=== PATIENT | male | born 1940 | race Caucasian/White ===

== ENCOUNTER → 2016-07-13 | Day surgery (SDC) | payer MEDICARE, OTHER ==
[~2016-07-13] MED LIST: ASPI81TA19 PO; BACT800T5 PO; BUPIVACAINE HCL PF 0.75% 30 ML VIAL ONE; CEFT500T3 PO; FURO1TAB62 PO; GABA300C5 PO; HYDR-3516 PO; HYDR-3580 PO; HYDR-3583 PO; IOHEXOL 180 MG/ML 20 ML VIAL (for RAD DIAG) OTHER ONE; LACTCHW3 CHEW; LEVO.075 PO; LIDOCAINE HCL 1% PF 30 ML VIAL INFIL ONE; METF500T PO; METO50TA PO; MUCI600T PO; NEUR300C PO; NIAC500T18 PO; OMEG100010 PO; OMEG1CAP53 PO; OXYGENTANK NAS.CANULA; PLAV75TA29 PO; POTA10CA PO; PRED10PA PO; PROPOFOL 200 MG/20 ML AMP IV ONE; RAMI5CAP PO; TRIAMCINOLONE ACETONIDE 40 MG/ML VIAL NB ONE; ZOCO40TA PO
--- NOTE | 2016-07-13 11:16 | RADHPO ---
EXAM DATE/TIME: 07/13/2016 10:30 [facility] COMPARISON: No previous studies available for comparison. INDICATIONS: L3/4 Disc Injection MEDICAL HISTORY: None. SURGICAL HISTORY: None. ENCOUNTER: Initial ACUITY: 1 day PAIN SCORE: Non-responsive. LOCATION: Lumbar spine FINDINGS: L3-4 disc space has been injected with contrast. CONCLUSION: 1. Status post injection of L3-4 disc space. Patrick Cabezas MD on July 13, 2016 at 11:07 Board Certified Radiologist. This report was verified electronically.
--- NOTE | 2016-07-18 09:25 | M6 ---
cc: CICI BETANCOURT M.D. DATE: 07/13/2016 DATE OF : 1940 PROCEDURE Fluoroscopically guided L3-4 disc injection. PROCEDURE NOTE History and physical was completed and signed. Consent was signed. Procedure site was marked. Medications were listed and reconciled. Pain score was recorded. Allergies were noted. Timeout was taken. Fluoroscopy time was recorded where applicable. Sedation was administered or directed by Dr. Betancourt. The patient was given oxygen. The patient was monitored by a registered nurse. Total procedure time was greater than 15 minutes. An IV was started, blood pressure cuff, pulse oximeter and EKG were applied. The patient was placed in the prone position on a Reinaldo table, sedated with small amounts of propofol titrated to effect. Vital signs were monitored and remained stable throughout the procedure. The lumbar area was prepped with alcohol and 10% Betadine solution, draped with sterile drapes. Fluoroscopy was used in an oblique angle to clearly visualize the L3-4 disc with the superior articular process of L4 at the midportion of the disk. Then the skin was infiltrated with 1% Xylocaine using a 27-gauge needle. Then a 16-gauge introducer needle was placed through the skin and then a 5-inch, 22-gauge spinal needle was advanced through the introducer needle to just inferior to the superior articular process of L4 into the midportion of the L3-4 disc. Omnipaque dye was injected and seen to spread throughout the disc with some leakage along the lateral aspect of the disc on the left side. Then the patient was given 1 mL of Marcaine 0.75% with 20 mg of Kenalog. Following the procedure the patient was taken to the recovery room with stable vital signs, neurologically intact. He will be evaluated immediately and with follow-up. W. MD OLIVIA Willis/BEE /9:33 AM /9:13 AM
== END | disposition home or self-care (01) ==
LOC: PHSDC 07:42
PROVIDERS: ATTEND Pain Medicine Interventional Pain Medicine
DX: M54.5 Low back pain (principal)
CPT/HCPCS: 62290; 72100; 99152; J3301; Q9965

== ENCOUNTER → 2016-08-31 | Outpatient (CLI) | payer MEDICARE, OTHER ==
[~2016-08-31] MED LIST changes: -BACT800T5 PO; -BUPIVACAINE HCL PF 0.75% 30 ML VIAL ONE; -IOHEXOL 180 MG/ML 20 ML VIAL (for RAD DIAG) OTHER ONE; -LIDOCAINE HCL 1% PF 30 ML VIAL INFIL ONE; -PROPOFOL 200 MG/20 ML AMP IV ONE; -TRIAMCINOLONE ACETONIDE 40 MG/ML VIAL NB ONE
[2016-08-31 09:27] LABS: MEAN CELL VOLUME 96.7 FL (80.0-100.0); MEAN CORPUSCULAR HEMOGLOBIN 32.4 PG (27.0-34.0); MEAN CORPUSCULAR HGB CONC 33.5 % (32.0-36.0); PLATELET COUNT 199 TH/MM3 (150-450); RED BLOOD COUNT 4.44 MIL/MM3 (4.50-5.90); RED CELL DISTRIBUTION WIDTH 12.6 % (11.6-17.2); REVIEW FLAG FINAL; WHITE BLOOD COUNT 8.1 TH/MM3 (4.0-11.0)
[2016-08-31 09:58] LABS: ALKALINE PHOSPHATASE 73 U/L (45-117); ALT (GPT) 26 U/L (12-78); ANION GAP 7 MEQ/L (5-15); AST (GOT) 19 U/L (15-37); BICARBONATE 32.4 MEQ/L (21.0-32.0); BLOOD UREA NITROGEN 15 MG/DL (7-18); CHLORIDE 102 MEQ/L (98-107); GLOMERULAR FILTRATION RATE 73 ML/MIN (>89); GLUCOSE,FASTING 136 MG/DL (74-99); LDL CHOLESTEROL 48 MG/DL (0-99); LDL CHOLESTEROL DIRECT 74 MG/DL (0-99); POTASSIUM 4.2 MEQ/L (3.5-5.1); SODIUM (NA) 141 MEQ/L (136-145); TOTAL BILIRUBIN ADULT 0.4 MG/DL (0.2-1.0)
[2016-08-31 10:19] LABS: MICRO ALBUMIN RANDOM URINE RAW 40.1 MG/L (0.0-30.0)
[2016-08-31 10:28] LABS: HEMOGLOBIN A1a 1.2 %; HEMOGLOBIN Ao 83.9 %; HEMOGLOBIN LA1C 2.1 %; HEMOGLOBIN P3 3.9 %
== END ==
LOC: PLAB 07:10
PROVIDERS: ATTEND Internal Medicine
DX: E11.65 Type 2 diabetes mellitus with hyperglycemia (principal); E78.5 Hyperlipidemia, unspecified; I10 Essential (primary) hypertension
CPT/HCPCS: 36415; 80053; 80061; 82043; 83036; 83721; 85027

== ENCOUNTER 2016-10-02 13:54 | Inpatient (IN) | payer MEDICARE, OTHER ==
[~2016-10-02] VITALS: Ht 181.6 cm; Wt 111.0 kg
[~2016-10-02 13:54] MED LIST changes: -CEFT500T3 PO; -FURO1TAB62 PO; -HYDR-3516 PO; -HYDR-3580 PO; -HYDR-3583 PO; -LACTCHW3 CHEW; -MUCI600T PO; -NEUR300C PO; -OXYGENTANK NAS.CANULA; -POTA10CA PO; -PRED10PA PO
[2016-10-10] MEDS ORDERED: HYDR-3580 PO (11:40)
--- NOTE | 2016-10-10 16:52 | MH ---
cc: ALEIXS MONTGOMERY DATE OF ADMISSION: 10/15/2016 ADMITTING DIAGNOSIS Lumbar degenerative disc disease. HISTORY OF PRESENT ILLNESS This is a 75-year-old male who presented to us for an evaluation of low back pain that he has had for over nine months extending into the left lateral thigh. He states he has had low back pain since 1977. He denies any paresthesias in the lower extremities. He states his legs are weak. His legs buckled two months ago and he fell. He ambulates without any assistive devices. He had physical therapy three months ago which did not help. He had five epidural steroid injections the last was two months ago. He relates that his first four injections which were at the L4-5 level did not help, and the last one was at the L3-L4 level on the left side which helped some for about three weeks. His low back pain improves with laying down. His back pain is more bothersome than his leg pain. In 2011 he had right leg pain in the right lateral thigh but this resolved on its own without PT or pain management. He denies any bowel or bladder incontinence. He states he is miserable and he is requesting surgical intervention. PAST MEDICAL HISTORY Significant for coronary artery disease and myocardial infarction in 2000. He has had angioplasty and stent placement in October of 2000 as well as November of 2000, and then angioplasty in July of 2002. Angioplasty and stent in January of 2004, angioplasty in May of 2008. CURRENT MEDICATIONS 1. Aspirin 81 mg daily. This was placed on hold one week prior to surgical intervention. 2. Plavix 75 mg daily. This was placed on hold one week prior to surgical intervention. 3. Gabapentin 300 mg three times a day. 4. Levothyroxine 75 mg daily. 5. Lovaza Halliday 3 two tablets b.i.d. 6. Metoprolol 50 mg daily. 7. Metformin 500 mg two tablets b.i.d. 8. Niacin 500 mg b.i.d. 9. Ramipril 5 mg b.i.d. 10. Simvastatin 10 mg q.h.s. 11. Hydrocodone 5/500 b.i.d. ALLERGIES HE HAS SENSITIVITIES TO TRAMADOL AND FLEXERIL. HE STATES HE MAY BE ALLERGIC TO MORPHINE. FAMILY HISTORY His mother is at 82 years old. His father is at 82 years old. His sister is at 75 years old, had COPD. He has a brother who is at 81 years old. SOCIAL HISTORY He does not smoke, he quit 1979. He does not drink alcohol. REVIEW OF SYSTEMS [id number]: Denies any fever or chills. EARS, NOSE AND THROAT: No pharyngitis, exudates or bloody drainage from his nose. CARDIOVASCULAR: He denies any chest pain or palpitations. RESPIRATORY: No cough or shortness of breath. GENITOURINARY: No dysuria or hematuria. MUSCULOSKELETAL: Positive for low back pain. SKIN: No rashes or pruritus. NEUROLOGIC: No difficulty with speech or memory. GASTROINTESTINAL: No nausea, vomiting or abdominal pain. PSYCHIATRIC: No anxiety or depression symptoms. ENDOCRINE: No polyuria or polydipsia. HEMATOLOGIC: Positive for easy bruising but no bleeding tendencies. PHYSICAL EXAMINATION HEAD: Normocephalic, atraumatic. NECK: Supple. No carotid bruits heard on auscultation. LUNGS: Clear to auscultation bilaterally. HEART: Regular rate and rhythm. Normal S1, S2. ABDOMEN: Soft, nontender. Positive bowel sounds. SKIN: Reveals no cyanosis or erythema although he does have mild ecchymosis on his forearms. MUSCULOSKELETAL: Reveals he has 5/5 strength in the lower extremities. He ambulates without any assistive devices. NEUROLOGIC: He is awake, alert and oriented. Cranial nerves II through XII are grossly intact. His speech is fluent. Comprehension is good. Sensation is intact in the extremities. Reflexes are very diminished in the lower extremities. DATA REVIEW Reviewed an MRI of the lumbar spine from June 12, 2016 which reveals severe degenerative disc disease with near complete disc height collapse at the L2/L3, L3/L4, L4/L5 and L5/S1 levels with associated disc protrusions and facet arthropathy. There are T2-weighted endplate changes at the L2/L3 level in particular. He has foraminal stenosis most pronounced at the L3/L4 level on the left side as well as the L5/S1 level. IMPRESSION A 75-year-old male with a chronic history of low back pain along with left L3 radiculopathy in the lateral thigh. He has undergone physical therapy without any relief and also multiple epidural steroid injections initially at the L4/L5 level which did not help and more recently at the left L3/L4 level which provided the patient with partial relief for about several weeks. His back pain bothers him more than the left lower extremity symptoms. He has multiple levels of degenerative disc disease extending from the L2-S1 levels along with facet arthropathy and foraminal stenosis, but the most symptomatic level appears to be the L2/L3 and L3/L4 level. He cannot live with his current level of discomfort and activity restriction and he is requesting that we proceed with surgical intervention. PLAN We have discussed the procedure of the left L2/L3 and L3/L4 transforaminal decompression with interbody fusion and pedicle screw fixation. We have discussed the risks involved with surgery include but not limited to bleeding, infection, muscle weakness, voice hoarseness, difficulty swallowing, heart attack, stroke, blood clots, non-fusion, scar tissue formation among others. He understands that he has multiple other levels of degenerative disc disease and facet arthropathy that may be contributing to his ongoing symptoms, but the goal is to address the most symptomatic level at this point. We have obtained cardiac clearance by Dr. Moore who placed the patient at an intermediate risk and was cleared by Dr. Grajeda from vascular surgery. The patient understands the procedure as well as the risks involved and is requesting that we proceed and he was therefore scheduled accordingly. Dictated by: Rell Lovett PA-C MD KATINA Peraza/ROSALVA /3:28 PM /4:15 PM
[2016-10-15] MEDS ORDERED: METOPROLOL TARTRATE 25 MG TAB PO PRN (06:45)
[2016-10-15] MEDS ORDERED: VANCOMYCIN HCL 1000 MG ON-CALL/NS 250 ML IV SCH ×2 (06:45)
[2016-10-15] MEDS ORDERED: INSULIN HUMAN REGULAR 1,000 UNITS/10 ML VIAL SQ PRN (06:45)
[2016-10-15] MEDS ORDERED: SODIUM CHLOR 0.9% 1000 ML INJ 1,000 ML IV SCH (06:45)
[2016-10-15] MEDS ORDERED: POVIDONE IODINE 5% (ANTISEPSIS KIT) 4 APPLICATIONS EACH NARE PRN (06:45)
[2016-10-15] MEDS ORDERED: CHLORHEXIDINE GLUCONATE 2 % 1 PACK (2 CLOTHS) TOPICAL PRN (06:45)
[2016-10-15] MEDS ORDERED: LACTATED RINGER'S 1000 ML IV PRN (06:45)
[2016-10-15] MEDS ORDERED: SODIUM CHLORID 0.9% 500 ML IV PRN (06:45)
[2016-10-15] MEDS ORDERED: VANCOMYCIN HCL 1000 MG VIAL ONE ×2 (07:17→12:19)
[2016-10-15] MEDS ORDERED: BUPIVACAINE/EPINEPHRINE 0.5% PF 30 ML VIAL ONE (07:17)
[2016-10-15] MEDS ORDERED: GELFOAM SIZE 100 ONE (07:18)
[2016-10-15 07:34] VITALS: BP 180/71; PULSE 60; RESP 18; TEMP 98; O2SAT 95
[2016-10-15] MEDS ORDERED: THROMBIN (TOPICAL) 5,000 UNIT VIAL ONE ×2 (07:51→12:06)
[2016-10-15] MEDS ORDERED: FAMOTIDINE 20 MG/2 ML VIAL ONE ×2 (08:19→08:50)
[2016-10-15] MEDS ORDERED: ACETAMINOPHEN 1000 MG/100 ML VIAL IV ONE (08:19)
[2016-10-15] MEDS ORDERED: ARTIFICIAL TEARS OPTH OINT 3.5 APPLIC/3.5 GM TUBO ONE (08:19)
[2016-10-15] MEDS ORDERED: MIDAZOLAM HCL 2 MG/2 ML VIAL ONE ×2 (08:19→08:49)
[2016-10-15] MEDS ORDERED: fentaNYL CITRATE 250 MCG/5 ML AMP ONE ×2 (08:19→13:27)
[2016-10-15] MEDS ORDERED: KETAMINE HCL 500 MG/5 ML VIAL ONE (08:36)
[2016-10-15] MEDS ORDERED: SUGAMMADEX SODIUM 200 MG/2 ML VIAL IV PUSH ONE ×2 (08:46)
[2016-10-15] MEDS: VANCOMYCIN 500 MG VIAL ONE ×2 (09:45→12:20)
[2016-10-15] MEDS ORDERED: ePHEDrine/NS 25 MG/5 ML SYR IV ONE (12:00)
[2016-10-15] MEDS ORDERED: PHENYLEPHRINE HCL 10 MG/ML VIAL IV ONE (12:00)
[2016-10-15] MEDS ORDERED: ONDANSETRON HCL 4 MG/2 ML VIAL IV ONE (12:00)
[2016-10-15] MEDS ORDERED: LACTATED RINGER'S 1000 ML INJ 1,000 ML IV ONE (12:00)
[2016-10-15] MEDS ORDERED: PROPOFOL 200 MG/20 ML AMP IV ONE (12:00)
[2016-10-15] MEDS ORDERED: VANCOMYCIN 500 MG VIAL ONE (12:20)
[2016-10-15] MEDS ORDERED: *MEPERIDINE 25 MG INJ VIAL PERIprocedural Use ONLY ONE (13:30)
[2016-10-15] MEDS ORDERED: MENTHOL LOZENGE BUCCAL PRN (13:45)
[2016-10-15] MEDS ORDERED: ZOLPIDEM TARTRATE 5 MG TAB PO PRN (13:45)
[2016-10-15] MEDS ORDERED: ACETAMINOPHEN/HYDROcodone 325 MG/10 MG TAB PO PRN (13:45)
[2016-10-15] MEDS ORDERED: cloNIDine HCL 0.1 MG TAB PO PRN (13:45)
[2016-10-15] MEDS ORDERED: RESP: ALBUTEROL 2.5 MG/3 ML NEB (PRN) NEB (13:45)
[2016-10-15] MEDS ORDERED: ONDANSETRON HCL 4 MG/2 ML VIAL IV PRN (13:45)
[2016-10-15] MEDS ORDERED: MAGNESIUM HYDROXIDE SUSP 30 ML CUP PO PRN (13:45)
[2016-10-15] MEDS ORDERED: ACETAMINOPHEN 325 MG TAB PO PRN (13:45)
[2016-10-15] MEDS ORDERED: SODIUM CHLORIDE 0.9% FLUSH 10 ML FLUSH IV FLUSH PRN (13:45)
[2016-10-15] MEDS ORDERED: ALUMINUM/MAGNESIUM/SIMETH 30 ML CUP PO PRN (13:45)
[2016-10-15] MEDS ORDERED: diphenhydrAMINE HCL 25 MG CAP PO PRN (13:45)
[2016-10-15] MEDS ORDERED: CALCIUM GLUCONATE INJ 1 GM in SODIUM CHLORIDE 0.9% INJ 100 ML IV PRN (13:45)
[2016-10-15] MEDS ORDERED: NALOXONE HCL 0.4 MG/ML AMP IV PRN (13:45)
[2016-10-15] MEDS ORDERED: POTASSIUM CHLOR 20 MEQ PREMIX 100 ML IV PRN (13:45)
[2016-10-15] MEDS ORDERED: PROCHLORPERAZINE INJ 10 MG/2 ML VIAL IV PUSH PRN (13:45)
[2016-10-15] MEDS ORDERED: MAGNESIUM SULFATE INJ 2 GM in SODIUM CHLORIDE 0.9% INJ 100 ML IV PRN (13:45)
--- NOTE | 2016-10-15 13:49 | PD.OP ---
cc: Jose Betancourt MD; Sirisha Silva MD Operative Report Date of Surgery: Oct 15, 2016 Preoperative Diagnosis: Intractable low back pain with the left L3 radiculopathy; severe L2-3 and L3-4 degenerative disc disease with disc height collapse, facet hypertrophy, and associated foraminal stenosis Postoperative Diagnosis: Same Procedure: Lumbar L2-3 and L3-4 transforaminal decompression with interbody fusion; L2-4 pedicle screw fixation; L2-3 and L3-4 interbody cage placement; microsurgical technique Anesthesia: Gen. endotracheal by Armani Nassar Surgeon: Heriberto Rothman M.D. Home Performance Consultant(s): Reena Li Operation and Findings: Following initiation of general endotracheal anesthesia, the patient had a Levi catheter placed along with sequential compression devices. A gram of vancomycin was administered intravenously and he was turned in a prone position on a John frame, on a Reinaldo table, and all pressure points adequately padded. The lumbosacral region was then prepped with Chloraprep and sterilely draped with Ioban along the usual sterile draping. A left paraspinal skin incision was then made extending from the L2-L4 level after infiltrating the skin with 0.5% Marcaine with epinephrine solution extending down through the fascia. The muscle fibers were split using avascular fatty plane and detached from the underlying facets, transverse process and lateral portion of lamina on the left side and a self-retaining retractor used for exposure. Intraoperative fluoroscopy was also used for level of confirmation along with microscope magnification for further dissection. There was significant facet and ligamentum flavum hypertrophy noted at the L2-3 and L3-4 levels. Left L2-3 and L3-4 facets were resected with a drill bit along with the lamina and there was severe foraminal and lateral recess stenosis from hypertrophied ligamentum flavum and facet which were decompressed. There was significant disc height collapse along with disc protrusion also leading to the foraminal stenosis. Epidural hemostasis was achieved with bipolar cautery and Gelfoam with thrombin. Subsequently entered into the disc space at the L2-3 and also the L3- 4 levels with a #15 blade and gilma were used for discectomy. I then placed PEEK cages packed with local autograft bone and more local autograft bone was packed adjacent to the cages in both interspaces for added interbody fusion. With placement of the cages, I was able to distract the interspace and opened up the foramen further bilaterally. Subsequently in order to facilitate the fusion and provide stabilization, pedicle screw fixation was undertaken using [place] spine screws with entry point at the left L2, L3 and L4 levels at the junction of the transverse process and facet. Subsequently using AP and lateral fluoroscopy tap and screw placement. The screws were then connected with a neftali and locked in place with caps. The construct appeared very secure at this point. The area was then copiously irrigated with Vancomycin solution and powder. The retractors were removed and the bipolar cautery used for hemostasis. The muscle fascia was then approximated using 2-0 Vicryl interrupted stitches and then 3-0 Vicryl subcuticular stitches also placed in interrupted fashion. The final skin closure was completed with Mastisol and Steri-Strips. A sterile dressing was then applied. The patient then turned in supine position, extubated and taken to recovery room. There were no intraoperative complications. All sponge and needle counts were correct at the end of procedure. Estimated blood loss about 100 ml. Heriberto Rothman MD Oct 15, 2016 13:49
[2016-10-15] MEDS ORDERED: *ONDANSETRON 4 MG VIAL PERIprocedural Use ONLY ONE (13:59)
[2016-10-15] MEDS: PCA - TOTAL MG DILAUDID DELIVERED PER SHIFT OTHER SCH ×2 (14:00→21:46)
[2016-10-15] MEDS ORDERED: GLUCAGON 1 MG/ML VIAL OTHER PRN (14:00)
[2016-10-15] MEDS ORDERED: DEXTROSE 50% IN WATER 50 ML VIAL(D50) IV PUSH PRN (14:00)
[2016-10-15 14:12] LABS: AUTOMATED NEUTROPHIL # 10.8 TH/MM3 (1.8-7.7); BASOPHIL # 0.1 TH/MM3 (0-0.2); BASOPHIL % 0.6 % (0.0-2.0); EOSINOPHIL # 0.1 TH/MM3 (0-0.4); EOSINOPHIL % 0.9 % (0.0-4.0); HEMATOCRIT 41.7 % (39.0-51.0); HEMO FLAGS DIFF FINAL; LYMPH % 17.5 % (9.0-44.0); LYMPHOCYTE # 2.5 TH/MM3 (1.0-4.8); MEAN CELL VOLUME 94.1 FL (80.0-100.0); MEAN CORPUSCULAR HEMOGLOBIN 31.8 PG (27.0-34.0); MEAN CORPUSCULAR HGB CONC 33.8 % (32.0-36.0); PLATELET COUNT 217 TH/MM3 (150-450); RED BLOOD COUNT 4.43 MIL/MM3 (4.50-5.90); RED CELL DISTRIBUTION WIDTH 12.9 % (11.6-17.2); WHITE BLOOD COUNT 14.4 TH/MM3 (4.0-11.0)
[2016-10-15 14:30] LABS: MAGNESIUM 1.8 MG/DL (1.5-2.5); POTASSIUM 4.3 MEQ/L (3.5-5.1)
[2016-10-15] MEDS: BACLOFEN 10 MG TAB PO SCH ×2 (14:30→21:40)
[2016-10-15] MEDS: NS + KCL 20 MEQ INJ 1,000 ML IV SCH ×2 (14:41→21:46)
[2016-10-15] MEDS: HYDROmorphone HCL PCA 6 MG/30 ML IV SCH (15:28)
[2016-10-15] MEDS: INSULIN NovoLIN REGULAR SUPPLEMENTAL SCALE SQ SCH ×2 (16:00→21:41)
[2016-10-15 17:00] VITALS: BP 146/80; PULSE 78; RESP 17; TEMP 96.1; O2SAT 96
[2016-10-15] MEDS: GABAPENTIN 300 MG CAP PO SCH (17:18)
--- NOTE | 2016-10-15 19:16 | RADRPT ---
EXAM DATE/TIME: 10/15/2016 09:27 [facility] COMPARISON: No previous studies available for comparison. INDICATIONS : Lumbar spine L2-3 L3-4 laminectomies with interbody cages and pedicle screw fixation. OR. MEDICAL HISTORY : Cardiovascular disease. SURGICAL HISTORY : Coronary artery stent. ENCOUNTER: Initial ACUITY: 1 day PAIN SCORE: Non-responsive. LOCATION: Lumbar L2-4 FINDINGS: Images and the operating room show fusion procedure with interbody and left posterior instrumentation taking place at L2/L3 and L3/L4. Alignment is near-anatomic. No evidence of an acute complication. CONCLUSION: Fusion at L2/L3 and L3/L4 without acute abnormality demonstrated. Jim Kowalski MD on October 15, 2016 at 19:13 Board Certified Radiologist. This report was verified electronically.
[2016-10-15 20:24] VITALS: O2SAT 96
[2016-10-15 20:35] VITALS: BP 136/70; PULSE 88; RESP 16; TEMP 96; O2SAT 95
[2016-10-15] MEDS ORDERED: OMEGA 3 FATTY ACIDS PO SCH (21:00)
[2016-10-15] MEDS: DOCUSATE SODIUM 100 MG CAP PO SCH (21:40)
[2016-10-15] MEDS: PRAVASTATIN SOD 80 MG TAB PO SCH (21:40)
[2016-10-15] MEDS: RAMIPRIL 5 MG CAP PO SCH (21:40)
[2016-10-15] MEDS: SODIUM CHLORIDE 0.9% FLUSH 10 ML FLUSH IV FLUSH SCH (21:45)
[2016-10-15 23:40] VITALS: BP 144/69; PULSE 96; RESP 18; TEMP 97.3; O2SAT 95
[2016-10-16] VITALS (7 sets, daily range): BP systolic 102–133; BP diastolic 56–64; PULSE 74–86; RESP 16–17; TEMP 97–98.2; O2SAT 95–98
[2016-10-16] MEDS: HYDROmorphone HCL PCA 6 MG/30 ML IV SCH (01:35)
[2016-10-16] MEDS: PCA - TOTAL MG DILAUDID DELIVERED PER SHIFT OTHER SCH ×2 (06:00→22:00)
[2016-10-16] MEDS: BACLOFEN 10 MG TAB PO SCH ×3 (06:33→22:03)
[2016-10-16] MEDS: LEVOTHYROXINE SODIUM 75 MCG TAB PO SCH (06:33)
[2016-10-16] MEDS: INSULIN NovoLIN REGULAR SUPPLEMENTAL SCALE SQ SCH ×4 (06:33→21:00)
[2016-10-16] MEDS: RAMIPRIL 5 MG CAP PO SCH ×2 (08:10→22:03)
[2016-10-16] MEDS: POLYETHYLENE GLYCOL 17 GM PKG PO SCH (08:10)
[2016-10-16] MEDS: DOCUSATE SODIUM 100 MG CAP PO SCH ×2 (08:11→22:03)
[2016-10-16] MEDS: PANTOPRAZOLE SOD 40 MG DELAYED RELEASE TAB PO SCH (08:11)
[2016-10-16] MEDS: ASPIRIN EC 81 MG TABEC PO SCH (08:11)
[2016-10-16] MEDS: GABAPENTIN 300 MG CAP PO SCH ×3 (08:11→17:29)
[2016-10-16] MEDS: METOPROLOL TARTRATE 50 MG TAB PO SCH (08:11)
[2016-10-16] MEDS ORDERED: ASPIRIN 325 MG TAB PO SCH (09:00)
[2016-10-16] MEDS: NIACIN 500 MG EXTENDED RELEASE TAB PO SCH (09:00)
[2016-10-16] MEDS ORDERED: ASPIRIN 81 MG CHEW TAB PO SCH (09:00)
[2016-10-16] MEDS: SODIUM CHLORIDE 0.9% FLUSH 10 ML FLUSH IV FLUSH SCH ×2 (09:00→22:05)
--- NOTE | 2016-10-16 09:27 | HHI.NSPN ---
(Rell Lovett) History Chief Complaint: Incisional back pain. (Rell Lovett) Interval History 10/16/16: Pt awake and alert. Complains of incisional pain controlled with HOME DAY CARE PROVIDER. He has some pain radiating into the left lateral thigh not past the knee. He is very pleased so far with the results. Pt has Levi in place states he cannot urinate when laying down. He will get up today with PT and likely remove. (Rell Lvoett) Review of Systems General: Negative for: fever, chills, insomnia Respiratory: Negative for: shortness of breath, cough, sputum Cardiovascular: Negative for: chest pain Gastrointestinal: Negative for: nausea, vomitting, diarrhea, constipation ( Rell Lovett) Exam Results Vital Signs Date Time Temp Pulse Resp B/P Pulse Ox O2 Delivery O2 Flow Rate FiO2 10/16/16 08:09 97.0 80 16 133/60 97 10/15/16 20:24 Nasal Cannula 3.00 Intake and Output 10/15/16 10/15/16 10/16/16 08:00 16:00 00:00 Intake Total 1000 ml 1120 ml Output Total 350 ml 650 ml Balance 650 ml 470 ml (Rell Lovett) Physical Examination Resp: CTA bilaterally Heart: NSR no murmurs Abd: Soft positive bs Skin: Pt log rolled. Incision clean and dry. No signs of infection. New bandage placed. Muscle: Moves LEs with good strength. Pt has not gotten oob yet, brace was not brought to hospital yesterday. Neuro: Pt awake and alert. Follows commands well. Speech clear and appropriate. (Rell Lovett) Lab, Micro, Other Results Last Impressions Lumbar Spine X-Ray 10/15/16 0000 Signed Impressions: Service Date/Time: Saturday, October 15, 2016 09:27 - CONCLUSION: Fusion at L2/ L3 and L3/L4 without acute abnormality demonstrated. Jim Kowalski MD Laboratory Tests Test 10/15/16 13:52 White Blood Count 14.4 TH/MM3 Red Blood Count 4.43 MIL/MM3 Hemoglobin 14.1 GM/DL Hematocrit 41.7 % Mean Corpuscular Volume 94.1 FL Mean Corpuscular Hemoglobin 31.8 PG Mean Corpuscular Hemoglobin 33.8 % Concent Red Cell Distribution Width 12.9 % Platelet Count 217 TH/MM3 Mean Platelet Volume 9.2 FL Neutrophils (%) (Auto) 75.0 % Lymphocytes (%) (Auto) 17.5 % Monocytes (%) (Auto) 6.0 % Eosinophils (%) (Auto) 0.9 % Basophils (%) (Auto) 0.6 % Neutrophils # (Auto) 10.8 TH/MM3 Lymphocytes # (Auto) 2.5 TH/MM3 Monocytes # (Auto) 0.9 TH/MM3 Eosinophils # (Auto) 0.1 TH/MM3 Basophils # (Auto) 0.1 TH/MM3 CBC Comment DIFF FINAL Differential Comment Sodium Level 139 MEQ/L Potassium Level 4.3 MEQ/L Chloride Level 104 MEQ/L Carbon Dioxide Level 26.0 MEQ/L Anion Gap 9 MEQ/L Blood Urea Nitrogen 19 MG/DL Creatinine 1.03 MG/DL Estimat Glomerular Filtration 70 ML/MIN Rate Random Glucose 175 MG/DL Calcium Level 8.5 MG/DL Magnesium Level 1.8 MG/DL 10/15/16 10/15/16 10/16/16 15:00 23:00 07:00 Intake Total 1000 ml 1120 ml Output Total 350 ml 650 ml Balance 650 ml 470 ml Intake Oral 480 ml IV Total 640 ml Other 1000 ml Output Urine Total 250 ml 650 ml Estimated Blood Loss 100 ml # Bowel Movements 0 (Rell Lovett) Medical Decision Making Impression and Plan A: 76 y/o M s/p L2/L3 and L3/L4 TLIF with cage and pedicle screw fixation. P: Continue to monitor D/C Levi today PT (Rell Lovett) Attending Statement The exam, history, and the medical decision-making described in the above note were completed with the assistance of the mid-level provider. I reviewed and agree with the findings presented. I attest that I had a [id number] encounter with the patient on the same day, and personally performed and documented my assessment and findings in the medical record. (Heriberto Rothman MD) Rell Lovett PA Oct 16, 2016 09:27 Heriberto Rothman MD Oct 16, 2016 16:41
[2016-10-16] MEDS: PRAVASTATIN SOD 80 MG TAB PO SCH (22:03)
[2016-10-16] MEDS: NS + KCL 20 MEQ INJ 1,000 ML IV SCH (22:50)
[2016-10-17] VITALS (9 sets, daily range): BP systolic 117–167; BP diastolic 58–86; PULSE 67–104; RESP 16–18; TEMP 97.3–99.1; O2SAT 93–95
[2016-10-17] MEDS: ACETAMINOPHEN/HYDROcodone 325 MG/10 MG TAB PO PRN ×2 (03:37→21:30)
[2016-10-17] MEDS: LEVOTHYROXINE SODIUM 75 MCG TAB PO SCH (05:07)
[2016-10-17] MEDS: BACLOFEN 10 MG TAB PO SCH (05:07)
[2016-10-17] MEDS: PCA - TOTAL MG DILAUDID DELIVERED PER SHIFT OTHER SCH (05:08)
[2016-10-17] MEDS: INSULIN NovoLIN REGULAR SUPPLEMENTAL SCALE SQ SCH ×4 (06:38→21:00)
[2016-10-17] MEDS ORDERED: GABA300C5 PO (08:50)
[2016-10-17] MEDS: GABAPENTIN 300 MG CAP PO SCH ×2 (09:00→21:32)
[2016-10-17] MEDS ORDERED: HYDROmorphone HCL PF 1 MG/ML VIAL IV PUSH PRN (09:00)
[2016-10-17] MEDS: SODIUM CHLORIDE 0.9% FLUSH 10 ML FLUSH IV FLUSH SCH ×2 (09:00→21:33)
--- NOTE | 2016-10-17 09:11 | HHI.NSPN ---
History Chief Complaint: Incisional back pain. Interval History 10/16/16: Pt awake and alert. Complains of incisional pain controlled with INBOUND SALES REPRESENTATIVE. He has some pain radiating into the left lateral thigh not past the knee. He is very pleased so far with the results. Pt has Levi in place states he cannot urinate when laying down. He will get up today with PT and likely remove. 10/17/16: Pt is confused this morning. Complains of low back pain. He has hallucinations. No slurred speech. good strength. He follows commands well. Review of Systems General: Negative for: fever, chills, insomnia Respiratory: Negative for: shortness of breath, cough, sputum Cardiovascular: Negative for: chest pain Gastrointestinal: Negative for: nausea, vomitting, diarrhea, constipation Exam Results Vital Signs Date Time Temp Pulse Resp B/P Pulse Ox O2 Delivery O2 Flow Rate FiO2 10/17/16 04:30 98.9 104 18 152/70 93 10/16/16 18:31 Nasal Cannula 2.00 Intake and Output 10/16/16 10/16/16 10/17/16 08:00 16:00 00:00 Intake Total 980 ml 1531 ml Balance 980 ml 1531 ml Physical Examination Resp: CTA bilaterally Heart: NSR no murmurs Abd: Soft positive bs Skin: No cyanosis or erythema. Muscle: Moves LEs with good strength 5/5. Neuro: Pt awake and alert. Follows commands well. Speech clear but inappropriate at times. Lab, Micro, Other Results Last Impressions Lumbar Spine X-Ray 10/15/16 0000 Signed Impressions: Service Date/Time: Saturday, October 15, 2016 09:27 - CONCLUSION: Fusion at L2/ L3 and L3/L4 without acute abnormality demonstrated. Jim Kowalski MD 10/16/16 10/16/16 10/17/16 15:00 23:00 07:00 Intake Total 980 ml 1531 ml 250 ml Output Total 75 ml Balance 980 ml 1531 ml 175 ml Intake Oral 980 ml 480 ml IV Total 1051 ml 250 ml Output Urine Total 75 ml # Voids 3 0 # Bowel Movements 0 0 Medical Decision Making Impression and Plan A: 76 y/o M s/p L2/L3 and L3/L4 TLIF with cage and pedicle screw fixation. P: Continue to monitor PT INBOUND SALES REPRESENTATIVE discontinued this morning. Will obtain follow up labs but confusion likely related to medication. Rell Lovett Oct 17, 2016 09:11
[2016-10-17] MEDS: POLYETHYLENE GLYCOL 17 GM PKG PO SCH (09:33)
[2016-10-17] MEDS: ASPIRIN EC 81 MG TABEC PO SCH (09:33)
[2016-10-17] MEDS: RAMIPRIL 5 MG CAP PO SCH ×2 (09:34→21:32)
[2016-10-17] MEDS: DOCUSATE SODIUM 100 MG CAP PO SCH ×2 (09:34→21:32)
[2016-10-17] MEDS: NIACIN 500 MG EXTENDED RELEASE TAB PO SCH (09:34)
[2016-10-17] MEDS: PANTOPRAZOLE SOD 40 MG DELAYED RELEASE TAB PO SCH (09:34)
[2016-10-17] MEDS: METOPROLOL TARTRATE 50 MG TAB PO SCH (09:34)
[2016-10-17 10:35] LABS: BLOOD, URINE NEG (NEG); GLUCOSE,URINE NEG (NEG); KETONE, URINE NEG (NEG); NITRITE,URINE NEG (NEG); SQUAMOUS EPITHELIAL CELL URINE <1 /hpf (0-5); URINE COLOR LIGHT-YELLOW (YELLW/STRAW)
[2016-10-17 10:40] LABS: COMMENT (UR) CULT NOT INDICATED; CULTURE IF INDICATED CULT NOT INDICATED
[2016-10-17 11:28] LABS: AUTOMATED NEUTROPHIL # 8.4 TH/MM3 (1.8-7.7); BASOPHIL # 0.1 TH/MM3 (0-0.2); BASOPHIL % 0.5 % (0.0-2.0); EOSINOPHIL # 0.1 TH/MM3 (0-0.4); EOSINOPHIL % 0.5 % (0.0-4.0); HEMATOCRIT 35.9 % (39.0-51.0); HEMO FLAGS DIFF FINAL; LYMPH % 16.1 % (9.0-44.0); LYMPHOCYTE # 1.9 TH/MM3 (1.0-4.8); MEAN CELL VOLUME 94.7 FL (80.0-100.0); MEAN CORPUSCULAR HEMOGLOBIN 31.8 PG (27.0-34.0); MEAN CORPUSCULAR HGB CONC 33.6 % (32.0-36.0); MONO % 11.9 % (0.0-8.0); PLATELET COUNT 174 TH/MM3 (150-450); RED BLOOD COUNT 3.79 MIL/MM3 (4.50-5.90); WHITE BLOOD COUNT 11.9 TH/MM3 (4.0-11.0)
[2016-10-17 11:56] LABS: ALKALINE PHOSPHATASE 70 U/L (45-117); ALT (GPT) 20 U/L (12-78); ANION GAP 6 MEQ/L (5-15); AST (GOT) 27 U/L (15-37); BLOOD UREA NITROGEN 15 MG/DL (7-18); CHLORIDE 101 MEQ/L (98-107); GLOMERULAR FILTRATION RATE 76 ML/MIN (>89); POTASSIUM 4.3 MEQ/L (3.5-5.1); SODIUM (NA) 137 MEQ/L (136-145); TOTAL BILIRUBIN ADULT 0.6 MG/DL (0.2-1.0)
[2016-10-17] MEDS: PRAVASTATIN SOD 80 MG TAB PO SCH (21:32)
[2016-10-18 04:35] VITALS: BP 144/70; PULSE 72; RESP 18; TEMP 98.1; O2SAT 92
[2016-10-18] MEDS: LEVOTHYROXINE SODIUM 75 MCG TAB PO SCH (06:00)
[2016-10-18] MEDS: INSULIN NovoLIN REGULAR SUPPLEMENTAL SCALE SQ SCH ×4 (07:00→21:32)
[2016-10-18 08:10] VITALS: BP 150/71; PULSE 83; RESP 18; TEMP 98.4; O2SAT 96
[2016-10-18] MEDS: SODIUM CHLORIDE 0.9% FLUSH 10 ML FLUSH IV FLUSH SCH ×2 (09:00→21:00)
--- NOTE | 2016-10-18 09:18 | HHI.NSPN ---
(Rell Lovett) History Chief Complaint: Incisional back pain. (Rell Lovett) Interval History 10/16/16: Pt awake and alert. Complains of incisional pain controlled with PIPE WASHER. He has some pain radiating into the left lateral thigh not past the knee. He is very pleased so far with the results. Pt has Levi in place states he cannot urinate when laying down. He will get up today with PT and likely remove. 10/17/16: Pt is confused this morning. Complains of low back pain. He has hallucinations. No slurred speech. good strength. He follows commands well. 10/18/16: Pt much less confused today and was likely related to medications. We will see how he does getting up with PT today and if stable and confusion doesn't return possibly discharge with his daughters. He denies any chest pain or sob. He complains of incisional pain and pain extending into the left lateral thigh. (Rell Lovett) Review of Systems General: Negative for: fever, chills, insomnia Respiratory: Negative for: shortness of breath, cough, sputum Cardiovascular: Negative for: chest pain Gastrointestinal: Negative for: nausea, vomitting, diarrhea, constipation ( Rell Lovett) Exam Results Vital Signs Date Time Temp Pulse Resp B/P Pulse Ox O2 Delivery O2 Flow Rate FiO2 10/18/16 08:10 98.4 83 18 150/71 96 10/17/16 18:26 Nasal Cannula 2.00 Intake and Output 10/17/16 10/17/16 10/18/16 08:00 16:00 00:00 Intake Total 730 ml 600 ml 480 ml Output Total 375 ml 1000 ml 1200 ml Balance 355 ml -400 ml -720 ml (Rell Lovett) Physical Examination Resp: CTA bilaterally Heart: NSR no murmurs Abd: Soft positive bs Skin: No cyanosis or erythema. Pt log rolled and new bandage placed. No signs of infection. Muscle: Moves LEs with good strength 5/5. Neuro: Pt awake and alert. Follows commands well. Speech clear but inappropriate at times. (Rell Lovett) Lab, Micro, Other Results Laboratory Tests Test 10/17/16 10/17/16 10:25 11:05 Urine Color LIGHT-YELLOW Urine Turbidity CLEAR Urine pH 5.0 Urine Specific [place] 1.005 Urine Protein NEG mg/dL Urine Glucose (UA) NEG mg/dL Urine Ketones NEG mg/dL Urine Occult Blood NEG Urine Nitrite NEG Urine Bilirubin NEG Urine Urobilinogen LESS THAN 2.0 MG/DL Urine Leukocyte Esterase NEG Urine RBC 1 /hpf Urine WBC 1 /hpf Urine Squamous Epithelial <1 /hpf Cells Microscopic Urinalysis Comment CULT NOT INDICATED White Blood Count 11.9 TH/MM3 Red Blood Count 3.79 MIL/MM3 Hemoglobin 12.1 GM/DL Hematocrit 35.9 % Mean Corpuscular Volume 94.7 FL Mean Corpuscular Hemoglobin 31.8 PG Mean Corpuscular Hemoglobin 33.6 % Concent Red Cell Distribution Width 13.0 % Platelet Count 174 TH/MM3 Mean Platelet Volume 9.4 FL Neutrophils (%) (Auto) 71.0 % Lymphocytes (%) (Auto) 16.1 % Monocytes (%) (Auto) 11.9 % Eosinophils (%) (Auto) 0.5 % Basophils (%) (Auto) 0.5 % Neutrophils # (Auto) 8.4 TH/MM3 Lymphocytes # (Auto) 1.9 TH/MM3 Monocytes # (Auto) 1.4 TH/MM3 Eosinophils # (Auto) 0.1 TH/MM3 Basophils # (Auto) 0.1 TH/MM3 CBC Comment DIFF FINAL Differential Comment Sodium Level 137 MEQ/L Potassium Level 4.3 MEQ/L Chloride Level 101 MEQ/L Carbon Dioxide Level 30.0 MEQ/L Anion Gap 6 MEQ/L Blood Urea Nitrogen 15 MG/DL Creatinine 0.96 MG/DL Estimat Glomerular Filtration 76 ML/MIN Rate Random Glucose 176 MG/DL Calcium Level 8.6 MG/DL Total Bilirubin 0.6 MG/DL Aspartate Amino Transf 27 U/L (AST/SGOT) Alanine Aminotransferase 20 U/L (ALT/SGPT) Alkaline Phosphatase 70 U/L Total Protein 6.3 GM/DL Albumin 2.8 GM/DL 10/17/16 10/17/16 10/18/16 15:00 23:00 07:00 Intake Total 480 ml 1080 ml 240 ml Output Total 300 ml 2200 ml Balance 180 ml -1120 ml 240 ml Intake Oral 480 ml 1080 ml 240 ml Output Urine Total 300 ml 2200 ml # Voids 2 3 # Bowel Movements 0 0 0 (Rell Lovett) Medical Decision Making Impression and Plan A: 76 y/o M s/p L2/L3 and L3/L4 TLIF with cage and pedicle screw fixation. P: Continue to monitor PT D/C planning possibly today depending on therapy and if confusion doesn't return. (Rell Lovett) Attending Statement The exam, history, and the medical decision-making described in the above note were completed with the assistance of the mid-level provider. I reviewed and agree with the findings presented. I attest that I had a [id number] encounter with the patient on the same day, and personally performed and documented my assessment and findings in the medical record. (Heriberto Rothman MD) Rell Lovett Oct 18, 2016 09:18 Heriberto Rothman MD Oct 18, 2016 16:04
[2016-10-18] MEDS: ASPIRIN EC 81 MG TABEC PO SCH (09:51)
[2016-10-18] MEDS: RAMIPRIL 5 MG CAP PO SCH ×2 (09:51→21:25)
[2016-10-18] MEDS: GABAPENTIN 300 MG CAP PO SCH ×2 (09:52→21:25)
[2016-10-18] MEDS: ACETAMINOPHEN/HYDROcodone 325 MG/10 MG TAB PO PRN ×3 (09:53→21:29)
[2016-10-18] MEDS: PANTOPRAZOLE SOD 40 MG DELAYED RELEASE TAB PO SCH (09:53)
[2016-10-18] MEDS: NIACIN 500 MG EXTENDED RELEASE TAB PO SCH (09:53)
[2016-10-18] MEDS: METOPROLOL TARTRATE 50 MG TAB PO SCH (09:53)
[2016-10-18] MEDS: DOCUSATE SODIUM 100 MG CAP PO SCH ×2 (09:54→21:25)
[2016-10-18] MEDS: POLYETHYLENE GLYCOL 17 GM PKG PO SCH (09:54)
[2016-10-18 12:00] VITALS: BP 136/77; PULSE 80; RESP 17; TEMP 97.9; O2SAT 97
[2016-10-18 16:20] VITALS: BP 140/66; PULSE 86; RESP 18; TEMP 98.3; O2SAT 95
[2016-10-18 21:00] VITALS: BP 137/76; PULSE 73; RESP 17; TEMP 97.6; O2SAT 96
[2016-10-18] MEDS: PRAVASTATIN SOD 80 MG TAB PO SCH (21:25)
[2016-10-19 00:30] VITALS: BP 150/71; PULSE 79; RESP 18; TEMP 97.5; O2SAT 95
[2016-10-19] MEDS: ACETAMINOPHEN/HYDROcodone 325 MG/10 MG TAB PO PRN ×2 (01:45→05:48)
[2016-10-19 04:40] VITALS: BP 122/64; PULSE 89; RESP 17; TEMP 97.9; O2SAT 94
[2016-10-19] MEDS: LEVOTHYROXINE SODIUM 75 MCG TAB PO SCH (05:40)
[2016-10-19] MEDS: INSULIN NovoLIN REGULAR SUPPLEMENTAL SCALE SQ SCH ×2 (05:47→12:17)
[2016-10-19 08:02] VITALS: BP 103/64; PULSE 92; RESP 18; TEMP 97.6; O2SAT 95
[2016-10-19] MEDS: NIACIN 500 MG EXTENDED RELEASE TAB PO SCH (08:25)
[2016-10-19] MEDS: DOCUSATE SODIUM 100 MG CAP PO SCH (08:26)
[2016-10-19] MEDS: GABAPENTIN 300 MG CAP PO SCH (08:26)
[2016-10-19] MEDS: POLYETHYLENE GLYCOL 17 GM PKG PO SCH (08:26)
[2016-10-19] MEDS: PANTOPRAZOLE SOD 40 MG DELAYED RELEASE TAB PO SCH (08:26)
[2016-10-19] MEDS: ASPIRIN EC 81 MG TABEC PO SCH (08:26)
[2016-10-19] MEDS: METOPROLOL TARTRATE 50 MG TAB PO SCH (08:26)
[2016-10-19 09:13] VITALS: O2SAT 95
--- NOTE | 2016-10-19 09:58 | HHI.NSPN ---
History Chief Complaint: Incisional back pain. Interval History 10/16/16: Pt awake and alert. Complains of incisional pain controlled with [employer]. He has some pain radiating into the left lateral thigh not past the knee. He is very pleased so far with the results. Pt has Levi in place states he cannot urinate when laying down. He will get up today with PT and likely remove. 10/17/16: Pt is confused this morning. Complains of low back pain. He has hallucinations. No slurred speech. good strength. He follows commands well. 10/18/16: Pt much less confused today and was likely related to medications. We will see how he does getting up with PT today and if stable and confusion doesn't return possibly discharge with his daughters. He denies any chest pain or sob. He complains of incisional pain and pain extending into the left lateral thigh. 10/19/16: Pt awake and alert. No confusion. Complains of left lateral leg pain to the knee. Pt states he wants to go home today and not rehab. He feels he will be more mobile and walk farther today. Review of Systems General: Negative for: fever, chills, insomnia Respiratory: Negative for: shortness of breath, cough, sputum Cardiovascular: Negative for: chest pain Gastrointestinal: Negative for: nausea, vomitting, diarrhea, constipation Exam Results Vital Signs Date Time Temp Pulse Resp B/P Pulse Ox O2 Delivery O2 Flow Rate FiO2 10/19/16 09:13 95 Nasal Cannula 2.00 10/19/16 08:02 97.6 92 18 103/64 Intake and Output 10/18/16 10/18/16 10/19/16 08:00 16:00 00:00 Intake Total 240 ml 1020 ml 240 ml Balance 240 ml 1020 ml 240 ml Physical Examination Resp: CTA bilaterally Heart: NSR no murmurs Abd: Soft positive bs Skin: No cyanosis or erythema. Muscle: Moves LEs with good strength 5/5. Neuro: Pt awake and alert. Follows commands well. Speech clear and appropriate. Lab, Micro, Other Results 10/18/16 10/18/1617 15:00 23:00 07:00 Intake Total 1020 ml 240 ml 240 ml Balance 1020 ml 240 ml 240 ml Intake Oral 1020 ml 240 ml 240 ml # Voids 6 2 2 # Bowel Movements 0 0 Medical Decision Making Impression and Plan A: 76 y/o M s/p L2/L3 and L3/L4 TLIF with cage and pedicle screw fixation. P: Continue to monitor PT Fleets enema Increase Neurontin to 600mg tid. Possible discharge today depending on how he does with PT. Rell Lovett Oct 19, 2016 09:58
[2016-10-19] MEDS ORDERED: SOD PHOSPHATE/SOD BIPHOSPHATE (ADULT) ENEMA 133ML RECTAL ONE (10:00)
--- NOTE | 2016-10-19 10:04 | HHI.FF ---
Face to Face Verification Diagnosis: (1) TIA (transient ischemic attack) (2) Hyperlipidemia (3) Hypertension (4) Diabetes mellitus (5) CAD (coronary artery disease) (6) Carotid stenosis (7) Low back pain (8) Facet arthropathy, lumbar (9) Lumbar degenerative disc disease (10) Lumbar foraminal stenosis Physical Therapy Order: Evaluate and Treat, Improve ambulation, Strength and gait training Home Health Nursing Order: Wound care and dressing changes Nursing assessment with vital signs I have seen patient Vlad Wan on 10/19/16. My clinical findings support the need for the requested home health care services because: Deconditioned w/ increased weakness High risk of falls I certify that my clinical findings support that this patient is homebound because: Post-op weakness Unsteady gait/balance Unable to use public transportation Rell Lovett Oct 19, 2016 10:04
[2016-10-19] MEDS ORDERED: HYDR-3583 PO (10:40)
[2016-10-19] MEDS ORDERED: NEUR300C PO (10:40)
[2016-10-19 12:14] VITALS: BP 120/70; PULSE 89; RESP 16; TEMP 97.7; O2SAT 96
[2016-10-19] MEDS ORDERED: GABAPENTIN 300 MG CAP PO SCH (13:00)
[2016-10-29] MEDS ORDERED: HYDR-3583 PO (15:53)
[2016-11-19] MEDS ORDERED: HYDR-3583 PO (14:50)
--- NOTE | 2016-11-23 16:24 | HHI.DS ---
Discharge Summary Admission Date Oct 15, 2016 at 05:58 Discharge Date: Oct 19, 2016 Admitting Diagnosis (1) Facet arthropathy, lumbar Diagnosis: Principal ICD Code: M12.88 (2) Lumbar foraminal stenosis Diagnosis: Principal ICD Code: M99.83 (3) Lumbar degenerative disc disease Diagnosis: Principal ICD Code: M51.36 (4) Low back pain Diagnosis: Principal ICD Code: M54.5 Procedures Lumbar L2/L3 and L3/L4 transforaminal decompression with interbody fusion with cage and pedicle screw fixation by Heriberto Rothman MD on 10/15/16. Brief History This is a 75-year-old male who presented to us for evaluation of low back pain that is had for over 9 months extending into the left lateral thigh. He states he has had low back pain since 1977. He denies any paresthesias in the lower extremities. He states his legs are weak. His legs buckled 2 months ago when he fell. He ambulates without any assistive device. He had physical therapy 3 months ago which did not help. He had 5 epidural steroid injections with pain management. Relates the first 4 injections which were at the L4/L5 level did not help and the last one at the L3/L4 level on the left side helped for about 3 weeks. His back pain improves with laying down. His back pain is more bothersome than his leg pains. He denies any bowel or bladder incontinence. He is miserable with this level of discomfort is requesting surgical intervention. Imaging MRI of the lumbar spine from 06/12/16 reveals severe degenerative disc disease with near complete disc height collapse at the L2/L3, L3/L4, L4/L5, and L5/S1 levels with associated disc protrusions and facet arthropathy. There are T2- weighted endplate changes at the L2/L3 level in particular. He has foraminal stenosis most pronounced at the L3/L4 level on the left side as well as the L5/ S1 level. Hospital Course She underwent the above-noted procedure performed by Dr. Rothman. There is no intraoperative complications. Postoperatively patient was admitted to the medical/surgical floor. PT was consultative. Patient's Levi was discontinued. Patient's EXHIBIT DESIGNER was discontinued and she had confusion related to this which subsequently resolved after the EXHIBIT DESIGNER was removed. Patient was discharged home in stable condition with home health care. Pt Condition on Discharge: Stable Discharge Disposition: Disch w/ Home Health Serv Discharge Instructions DIET: Follow Instructions for: Diabetic Diet ACTIVITIES You can perform: Shower Only-No Bath Activities to Avoid: Lifting/Bending, Prolonged Standing, Strenuous Activity, Bathing, Driving ADDITIONAL Activity Instructio: Lumbar brace on when oob sitting, standing, or walking. Follow up Referrals: Appointment for Follow Up New Medications: Gabapentin (Neurontin) 300 Mg Cap 600 MG PO TID #120 CAP Continued Medications: Aspirin DR (Aspir-Low) 81 Mg Tabdr 81 MG PO Blood Clot Prevention Clopidogrel (Plavix) 75 Mg Tab 75 MG PO DAILY Blood Clot Prevention Ref 0 TAB Levothyroxine (Synthroid) 75 Mcg Tab 75 MCG PO DAILY Thyroid Ref 0 TAB Metformin (Metformin) 500 Mg Tab 500 MG PO BIDPC With meals Blood Sugar Management Ref 0 TAB Metoprolol Tartrate (Metoprolol Tartrate) 50 Mg Tab 50 MG PO DAILY Blood Pressure Management Ref 0 TAB Niacinamide (Niacin) 500 Mg Tab 1500 MG PO DAILY Cholesterol Management [place]-3 Fatty Acids ([place] 3 1000 mg) 1 Cap Cap 2 GM PO BID Cholesterol Management Tpdvz-4-Orlt Ethyl Esters (Lovaza) 1 Gm Cap 2 GM PO BID Manage Triglycerides #120 Ref 0 CAP Ramipril (Ramipril) 5 Mg Cap 5 MG PO BID Blood Pressure Management Ref 0 CAP Simvastatin (Zocor) 40 Mg Tab 40 MG PO HS Cholesterol Management Ref 0 TAB Discontinued Medications: Gabapentin (Gabapentin) 300 Mg Cap 900 MG PO BID Pain Management #90 Ref 0 CAP Hydrocodone-Acetaminophen (Hydrocodone-Acetaminophen) 7.5-325 mg Tab 1 TAB PO TID PRN PAIN #30 Ref 0 TAB Rell Lovett November 23, 2016 16:24
[2016-11-29] MEDS ORDERED: HYDR-3583 PO (14:27)
[2016-12-24] MEDS ORDERED: HYDR-3583 PO (14:43)
== END 2016-10-19 16:20 | disposition home health service (06) | DRG 460 ==
LOC: HSDI 10-15 05:58 → N06A 10-15 15:32
PROVIDERS: ADMIT Neurological Surgery; ATTEND Neurological Surgery
PROC: 0ST20ZZ Resection of Lumbar Vertebral Disc, Open Approach (ICD-10-PCS; 2016-10-15)
PROC: 0SG10AJ Fusion of 2 or more Lumbar Vertebral Joints with Interbody Fusion Device, Posterior Approach, Anterior Column, Open Approach (ICD-10-PCS; principal; 2016-10-15 08:54)
DX: M51.16 Intervertebral disc disorders with radiculopathy, lumbar region (principal); R44.3 Hallucinations, unspecified; I25.2 Old myocardial infarction; I25.10 Atherosclerotic heart disease of native coronary artery without angina pectoris; Z95.5 Presence of coronary angioplasty implant and graft; M48.06 Spinal stenosis, lumbar region
CPT/HCPCS: 72100; 76000; 80048; 80053; 81001; 82948; 83735; 85025; 86850; 86900; 86901; 86920; 94150; C1713; J0131; J0690; J1170; J2175; J2250; J2370; J2405; J3010; J3370; J3480; J7030; J7050; J7120

== ENCOUNTER → 2016-10-10 | Outpatient (CLI) | payer MEDICARE, OTHER ==
[~2016-10-10] MED LIST changes: +CEFT500T3 PO; +FURO1TAB62 PO; +HYDR-3516 PO; +HYDR-3580 PO; +HYDR-3583 PO; +LACTCHW3 CHEW; +MUCI600T PO; +NEUR300C PO; +OXYGENTANK NAS.CANULA; +POTA10CA PO; +PRED10PA PO
[2016-10-10 12:19] LABS: AUTOMATED NEUTROPHIL # 4.8 TH/MM3 (1.8-7.7); BASOPHIL # 0.1 TH/MM3 (0-0.2); BASOPHIL % 0.8 % (0.0-2.0); EOSINOPHIL # 0.5 TH/MM3 (0-0.4); EOSINOPHIL % 5.2 % (0.0-4.0); HEMATOCRIT 46.2 % (39.0-51.0); HEMO FLAGS DIFF FINAL; LYMPH % 29.4 % (9.0-44.0); LYMPHOCYTE # 2.6 TH/MM3 (1.0-4.8); MEAN CELL VOLUME 94.7 FL (80.0-100.0); MEAN CORPUSCULAR HEMOGLOBIN 31.2 PG (27.0-34.0); MONO % 10.4 % (0.0-8.0); NEUT % 54.2 % (16.0-70.0); PLATELET COUNT 208 TH/MM3 (150-450); RED BLOOD COUNT 4.89 MIL/MM3 (4.50-5.90); RED CELL DISTRIBUTION WIDTH 12.8 % (11.6-17.2); WHITE BLOOD COUNT 8.8 TH/MM3 (4.0-11.0)
[2016-10-10 12:28] LABS: INTERNATIONAL NORMALIZED RATIO 1.1 RATIO; PROTHROMBIN TIME - PATIENT 11.9 SEC (9.8-11.6)
--- NOTE | 2016-10-10 12:48 | RADRPT ---
EXAM DATE/TIME: 10/10/2016 12:21 [facility] COMPARISON: No previous studies available for comparison. INDICATIONS : Evaluate for pneumonia, pneumothorax or communicable disease. Pre op lumbar surgery. MEDICAL HISTORY : Cardiovascular disease. SURGICAL HISTORY : Coronary artery stent. ENCOUNTER: Initial ACUITY: 1 day PAIN SCORE: 0/10 LOCATION: Bilateral chest FINDINGS: There is cardiomegaly, shallow lung volumes and diffuse interstitial lung disease. There are a few sc attered tiny nodular foci bilaterally possibly representing calcified granulomas. Degenerative change s of the spine are noted. There is mild elevation of the left hemidiaphragm. CONCLUSION: 1. Diffuse interstitial lung disease and shallow lung volumes. Probable calcified granulomas. Dimas Rodgers MD on October 10, 2016 at 12:46 Board Certified Radiologist. This report was verified electronically.
[2016-10-10 13:07] LABS: BLOOD, URINE NEG (NEG); COMMENT (UR) CULT NOT INDICATED; CULTURE IF INDICATED CULT NOT INDICATED; GLUCOSE,URINE NEG (NEG); KETONE, URINE NEG (NEG); NITRITE,URINE NEG (NEG); PH, URINE 6.5 (5.0-8.5); URINE COLOR YELLOW (YELLW/STRAW)
[2016-10-10 13:11] LABS: ALKALINE PHOSPHATASE 86 U/L (45-117); ALT (GPT) 33 U/L (12-78); ANION GAP 5 MEQ/L (5-15); AST (GOT) 28 U/L (15-37); BICARBONATE 30.6 MEQ/L (21.0-32.0); BLOOD UREA NITROGEN 13 MG/DL (7-18); CHLORIDE 100 MEQ/L (98-107); GLOMERULAR FILTRATION RATE 77 ML/MIN (>89); GLUCOSE,FASTING 127 MG/DL (74-99); POTASSIUM 4.5 MEQ/L (3.5-5.1); SODIUM (NA) 136 MEQ/L (136-145); TOTAL BILIRUBIN ADULT 0.2 MG/DL (0.2-1.0)
--- NOTE | 2016-10-11 21:10 | EKG ---
Date Performed: 10/10/2016 Time Performed: 11:34:24 PTAGE: 75 years EKG: SINUS BRADYCARDIA BORDERLINE LEFT AXIS DEVIATION BORDERLINE ECG PREVIOUS TRACING 08/09/2015 @13.56 Compared to prior tracing no significant change DOCTOR: Gus Giraldo Interpretating Date/Time 10/11/2016 21:08:02
== END ==
LOC: CPRE 11:05
PROVIDERS: ATTEND Neurological Surgery
DX: Z01.810 Encounter for preprocedural cardiovascular examination (principal); Z01.811 Encounter for preprocedural respiratory examination; Z01.812 Encounter for preprocedural laboratory examination; Z01.818 Encounter for other preprocedural examination; Z79.01 Long term (current) use of anticoagulants; M51.36 Other intervertebral disc degeneration, lumbar region; M99.83 Other biomechanical lesions of lumbar region; R94.31 Abnormal electrocardiogram [ECG] [EKG]
CPT/HCPCS: 36415; 71020; 80053; 81001; 85025; 85610; 85730; 93005

== ENCOUNTER 2016-11-10 08:17 | Inpatient (IN) | payer MEDICARE, OTHER ==
[~2016-11-10] VITALS: Ht 180.3 cm; Wt 110.6 kg
[2016-11-10] VITALS (9 sets, daily range): BP systolic 121–160; BP diastolic 58–70; PULSE 72–94; RESP 15–19; TEMP 97.5–98.1; O2SAT 93–96
[~2016-11-10 08:17] MED LIST changes: -CEFT500T3 PO; -FURO1TAB62 PO; -GABA300C5 PO; -HYDR-3516 PO; -HYDR-3580 PO; -LACTCHW3 CHEW; -MUCI600T PO; -OXYGENTANK NAS.CANULA; -POTA10CA PO; -PRED10PA PO
[2016-11-10] MEDS ORDERED: SODIUM CHLORIDE 0.9% FLUSH 10 ML FLUSH IVF PRN (08:45)
--- NOTE | 2016-11-10 08:55 | PD ---
HPI Chief Complaint: Respiratory Symptoms Time Seen by Provider: 08:24 Travel History International Travel<30 days: No Contact w/Intl Traveler<30days: No Traveled to known affect area: No History of Present Illness HPI 76 yo M c/o cough for about one day with non-bloody phlegm. Possible fever, though temp taken. + WALKER and dyspnea at rest. No chest pain. Onset of SOB was gradual was accompanied by cough. Pt believes he may have a PNA. No sick contacts. He quit smoking in 1979. No hx COPD/Asthma. Denies hx CHF. He reports marked WALKER in ER. Occasional mild low back pain from lumbar spine surgery approx 1 month prior noted, without saddle anesthesia, overflow urinary incontinence, change in bowel habits or weakness in lower extremities. PFSH Past Medical History Hx Anticoagulant Therapy: Yes Arthritis: Yes Blood Disorders: No Cancer: No Cardiac Catheterization: Yes Cardiovascular Problems: Yes High Cholesterol: Yes Chest Pain: Yes Congestive Heart Failure: No Cerebrovascular Accident: Yes (TIA NOVEMBER 2013) Coronary Artery Disease: Yes Diabetes: Yes (TYPE 2 ) Patient Takes Glucophage: Yes Diminished Hearing: No Endocrine: Yes Gastrointestinal Disorders: No Genitourinary: Yes (enlarged prostate) Hepatitis: No Hiatal Hernia: No Heparin Induced Thrombocytopen: No Hypertension: Yes Immune Disorder: No Implanted Vascular Access Dvce: No Kidney Stones: Yes Medical other: No Musculoskeletal: Yes (arthritis and lower back pain) Neurologic: Yes (TIA) Psychiatric: No Reproductive: No Respiratory: No Immunizations Current: Yes Myocardial Infarction: Yes (2000) Thyroid Disease: Yes PNEUMOCCOCAL Vaccine (Year): 1 Past Surgical History Abdominal Surgery: No AICD: No Body Medical Devices: cardiac stents x 3 Cardiac Surgery: Yes (PLACEMENT OF STENT x 3) Coronary Stent: Yes (4 STENTS 2000 & 2003) Ear Surgery: No Endocrine Surgery: No Eye Surgery: Yes (REMOVAL OF STEEL RT. EYE) Genitourinary Surgery: No Gynecologic Surgery: No Joint Replacement: Yes (RT KNEE REPLACEMENT) Neurologic Surgery: No Oral Surgery: Yes (for dentures) Pacemaker: No Thoracic Surgery: No Other Surgery: Yes Social History Alcohol Use: No (QUIT 1979) Tobacco Use: No (QUIT 1979) Substance Use: No Allergies-Medications (Allergen,Severity, Reaction): Coded Allergies: Morphine (Verified Allergy, Severe, 10/29/16) CONFIRM? Flexeril (Verified Adverse Reaction, Mild, FATIGUE, NERVOUSNESS, CONFUSION , 10/29/16) Tramadol (Verified Adverse Reaction, Mild, FATIGUE, NERVOUSNESS, CONFUSION , 10/29/16) Reported Meds & Prescriptions Reported Meds & Active Scripts Active Hydrocodone-Acetaminophen 10-325 mg Tab 1 Tab PO Q6HR PRN Neurontin (Gabapentin) 300 Mg Cap 600 Mg PO TID Reported Lovaza (Aippo-4-Azlh Ethyl Esters) 1 Gm Cap 2 Gm PO BID Metoprolol Tartrate 50 Mg Tab 50 Mg PO DAILY Zocor (Simvastatin) 40 Mg Tab 40 Mg PO HS Synthroid (Levothyroxine Sodium) 75 Mcg Tab 75 Mcg PO DAILY Ramipril 5 Mg Cap 5 Mg PO BID Plavix (Clopidogrel Bisulfate) 75 Mg Tab 75 Mg PO DAILY Niacin (Niacinamide) 500 Mg Tab 1,500 Mg PO DAILY Metformin (Metformin HCl) 500 Mg Tab 500 Mg PO BIDPC With meals Aspir-Low (Aspirin) 81 Mg Tabdr 81 Mg PO [place] 3 1000 mg ([place]-3 Fatty Acids) 1 Cap Cap 2 Gm PO BID Review of Systems Except as stated in HPI: all other systems reviewed are Neg General / Constitutional: Positive: Fever, Chills Cardiovascular: No: Chest Pain or Discomfort, Palpitations, Diaphoresis Respiratory: Positive: Cough, Shortness of Breath Physical Exam Narrative GENERAL: 76 yo M, WNWD, speaking in full sentences SKIN: Warm and dry. The surgical incision site overlying the lumbar spine is clean dry and intact and nontender. HEAD: Atraumatic. Normocephalic. EYES: Pupils equal and round. No scleral icterus. No injection or drainage. ENT: No nasal bleeding or discharge. Mucous membranes pink and moist. NECK: Trachea midline. No JVD. CARDIOVASCULAR: Regular rate and rhythm. RESPIRATORY: No accessory muscle use. Clear to auscultation. Breath sounds equal bilaterally. GASTROINTESTINAL: Abdomen soft, non-tender, nondistended. Hepatic and splenic margins not palpable. MUSCULOSKELETAL: 2+ pitting edema bilateral lower extremities. NEUROLOGICAL: Awake and alert. No obvious cranial nerve deficits. Motor grossly within normal limits. Five out of 5 muscle strength in the arms and legs. Normal speech. PSYCHIATRIC: Appropriate mood and affect; insight and judgment normal. Data Data Last Documented VS Vital Signs Date Time Temp Pulse Resp B/P Pulse Ox O2 Delivery O2 Flow Rate FiO2 11/10/16 08:34 98.1 72 19 144/67 96 Room Air Orders Electrocardiogram (11/10/16 08:31) Basic Metabolic Panel (Bmp) (11/10/16 08:31) Complete Blood Count With Diff (11/10/16 08:31) Blood Culture (11/10/16 08:31) Chest, Single Ap (11/10/16 08:31) Ecg Monitoring (11/10/16 08:31) Iv Access Insert/Monitor (11/10/16 08:31) Oximetry (11/10/16 08:31) Oxygen Administration (11/10/16 08:31) Sodium Chloride 0.9% Flush (Ns Flush) (11/10/16 08:45) Urinary Catheter Insert/Apply (11/10/16 08:55) Urinalysis - C+S If Indicated (11/10/16 09:11) B-Type Natriuretic Peptide (11/10/16 09:12) Ceftriaxone Inj (Rocephin Inj) (11/10/16 09:15) Azithromycin (Zithromax) (11/10/16 09:15) Troponin I (11/10/16 10:08) Furosemide Inj (Lasix Inj) (11/10/16 10:15) Admit Order (Ed Use Only) (11/10/16 11:07) Labs Laboratory Tests Test 11/10/16 11/10/16 08:50 09:00 White Blood Count 12.7 TH/MM3 Red Blood Count 4.21 MIL/MM3 Hemoglobin 13.1 GM/DL Hematocrit 39.2 % Mean Corpuscular Volume 93.3 FL Mean Corpuscular Hemoglobin 31.1 PG Mean Corpuscular Hemoglobin 33.3 % Concent Red Cell Distribution Width 13.4 % Platelet Count 267 TH/MM3 Mean Platelet Volume 9.5 FL Neutrophils (%) (Auto) 77.8 % Lymphocytes (%) (Auto) 10.6 % Monocytes (%) (Auto) 10.7 % Eosinophils (%) (Auto) 0.6 % Basophils (%) (Auto) 0.3 % Neutrophils # (Auto) 9.9 TH/MM3 Lymphocytes # (Auto) 1.3 TH/MM3 Monocytes # (Auto) 1.4 TH/MM3 Eosinophils # (Auto) 0.1 TH/MM3 Basophils # (Auto) 0.0 TH/MM3 CBC Comment DIFF FINAL Differential Comment Sodium Level 134 MEQ/L Potassium Level 4.4 MEQ/L Chloride Level 96 MEQ/L Carbon Dioxide Level 30.7 MEQ/L Anion Gap 7 MEQ/L Blood Urea Nitrogen 21 MG/DL Creatinine 0.99 MG/DL Estimat Glomerular Filtration 73 ML/MIN Rate Random Glucose 209 MG/DL Calcium Level 9.0 MG/DL Troponin I LESS THAN 0.02 NG/ML Urine Color YELLOW Urine Turbidity CLEAR Urine pH 6.0 Urine Specific [place] 1.017 Urine Protein 30 mg/dL Urine Glucose (UA) TRACE mg/dL Urine Ketones NEG mg/dL Urine Occult Blood NEG Urine Nitrite NEG Urine Bilirubin NEG Urine Urobilinogen LESS THAN 2.0 MG/DL Urine Leukocyte Esterase NEG Urine RBC LESS THAN 1 /hpf Microscopic Urinalysis Comment CULT NOT INDICATED B-Type Natriuretic Peptide 192 PG/ML MDM Medical Decision Making Medical Screen Exam Complete: Yes Emergency Medical Condition: Yes Medical Record Reviewed: Yes Differential Diagnosis CHF, PNA, Anemia, Renal disease Narrative Course CBC & BMP Diagram 11/10/16 08:50 BNP 192 Tn < 0.02 UA: No UTI Last 24 hours Impressions Chest X-Ray 11/10/16 0831 Signed Impressions: Service Date/Time: Thursday, November 10, 2016 08:54 - CONCLUSION: 1. Diffuse interstitial prominence could be interstitial edema versus interstitial lung disease. 2. The right upper lobe and bibasilar airspace disease. Rell Wild MD EKG: sinus, rate 74, left axis deviation Lasix ordered. Rocephin and azithromycin are as. Blood cultures drawn. Case discussed with Dr Lund for [facility]. Diagnosis Primary Impression: PNA (pneumonia) Qualified Code: J18.9 - Pneumonia of both lungs due to infectious organism, unspecified part of lung Additional Impression: CHF (congestive heart failure) Qualified Code: I50.9 - Congestive heart failure, unspecified congestive heart failure chronicity, unspecified congestive heart failure type Admitting Information Admitting Physician Requests: Observation Jaguar Talley MD November 10, 2016 08:55
--- NOTE | 2016-11-10 08:58 | RADRPT ---
EXAM DATE/TIME: 11/10/2016 08:54 [place] COMPARISON: CHEST PA & LAT, October 10, 2016, 12:21. INDICATIONS : Short of breath. MEDICAL HISTORY : None. SURGICAL HISTORY : None. ENCOUNTER: Initial ACUITY: 1 day PAIN SCORE: 6/10 LOCATION: Bilateral chest FINDINGS: A single view of the chest demonstrates cardiomegaly with interstitial prominence and right upper lob e and bibasilar airspace disease. Heart enlarged. Osseous structures are intact. CONCLUSION: 1. Diffuse interstitial prominence could be interstitial edema versus interstitial lung disease. 2. The right upper lobe and bibasilar airspace disease. Rell Wild MD on November 10, 2016 at 8:54 Board Certified Radiologist. This report was verified electronically.
[2016-11-10] MEDS ORDERED: cefTRIAXone INJ 1,000 MG in SODIUM CHLORIDE 0.9% INJ 100 ML IV ONE (09:15)
[2016-11-10] MEDS ORDERED: AZITHROMYCIN 250 MG TAB PO ONE (09:15)
[2016-11-10 09:18] LABS: AUTOMATED NEUTROPHIL # 9.9 TH/MM3 (1.8-7.7); BASOPHIL % 0.3 % (0.0-2.0); EOSINOPHIL # 0.1 TH/MM3 (0-0.4); EOSINOPHIL % 0.6 % (0.0-4.0); HEMATOCRIT 39.2 % (39.0-51.0); HEMO FLAGS DIFF FINAL; LYMPH % 10.6 % (9.0-44.0); LYMPHOCYTE # 1.3 TH/MM3 (1.0-4.8); MEAN CELL VOLUME 93.3 FL (80.0-100.0); MEAN CORPUSCULAR HEMOGLOBIN 31.1 PG (27.0-34.0); MEAN CORPUSCULAR HGB CONC 33.3 % (32.0-36.0); MONO % 10.7 % (0.0-8.0); NEUT % 77.8 % (16.0-70.0); PLATELET COUNT 267 TH/MM3 (150-450); RED BLOOD COUNT 4.21 MIL/MM3 (4.50-5.90); RED CELL DISTRIBUTION WIDTH 13.4 % (11.6-17.2); WHITE BLOOD COUNT 12.7 TH/MM3 (4.0-11.0)
[2016-11-10 09:32] LABS: BICARBONATE 30.7 MEQ/L (21.0-32.0); POTASSIUM 4.4 MEQ/L (3.5-5.1)
[2016-11-10 09:33] LABS: BLOOD, URINE NEG (NEG); COMMENT (UR) CULT NOT INDICATED; CULTURE IF INDICATED CULT NOT INDICATED; GLUCOSE,URINE TRACE mg/dL (NEG); KETONE, URINE NEG (NEG); NITRITE,URINE NEG (NEG); URINE COLOR YELLOW (YELLW/STRAW)
[2016-11-10] MEDS ORDERED: FUROSEMIDE 40 MG/4 ML VIAL IV PUSH ONE (10:15)
[2016-11-10] MEDS ORDERED: MAGNESIUM HYDROXIDE SUSP 30 ML CUP PO PRN (11:30)
[2016-11-10] MEDS: DOCUSATE SODIUM 100 MG CAP PO SCH ×2 (11:30→20:52)
[2016-11-10] MEDS ORDERED: ONDANSETRON HCL 4 MG/2 ML VIAL IVP PRN (11:30)
[2016-11-10] MEDS ORDERED: TEMAZEPAM 15 MG CAP PO PRN (11:30)
[2016-11-10] MEDS ORDERED: SODIUM CHLORIDE 0.9% FLUSH 10 ML FLUSH IV FLUSH PRN (11:30)
[2016-11-10] MEDS ORDERED: ACETAMINOPHEN 325 MG TAB PO PRN (11:30)
--- NOTE | 2016-11-10 11:34 | HHI.HP ---
HPI Service [facility] Primary Care Physician Sirisha Silva MD Admission Diagnosis PNA, CHF Diagnoses: Chief Complaint: sob Travel History International Travel<30 Days: No Contact w/Intl Traveler <30 Da: No Traveled to Known Affected Are: No History of Present Illness Pleasant 76 -year-old male with past medical history of coronary artery disease with 4 stents in the past, and angioplasties, hypertension, hyperlipidemia, hypothyroidism, recent back surgery. Patient presents to the emergency room with complaints of worsening shortness of breath for the past 2 days. There is no associated lower extremity edema and he also complains of reductive cough clear whitish sputum no blood in it. Occasional fevers and chills. Doesn't use oxygen at home. He denies chest pain, palpitations, lightheadedness, diaphoresis, nausea. He has constipation , 2/2 norco use for back pain after the surgery. Denies urinary complaints. There is no lower extremity edema. Review of Systems Except as stated in HPI: all other systems reviewed are Neg Past Family Social History Past Medical History coronary artery disease with 4 stents in the past, and angioplasties, hypertension, hyperlipidemia, hypothyroidism Past Surgical History Recent back surgery by Dr. Rothman 10/15/16 Cardiac catheterization Reported Medications Reported Meds & Active Scripts Active Hydrocodone-Acetaminophen 10-325 mg Tab 1 Tab PO Q6HR PRN Neurontin (Gabapentin) 300 Mg Cap 600 Mg PO TID Reported Lovaza (Jqwcf-6-Uieq Ethyl Esters) 1 Gm Cap 2 Gm PO BID Metoprolol Tartrate 50 Mg Tab 50 Mg PO DAILY Zocor (Simvastatin) 40 Mg Tab 40 Mg PO HS Synthroid (Levothyroxine Sodium) 75 Mcg Tab 75 Mcg PO DAILY Ramipril 5 Mg Cap 5 Mg PO BID Plavix (Clopidogrel Bisulfate) 75 Mg Tab 75 Mg PO DAILY Niacin (Niacinamide) 500 Mg Tab 1,500 Mg PO DAILY Metformin (Metformin HCl) 500 Mg Tab 500 Mg PO BIDPC With meals Aspir-Low (Aspirin) 81 Mg Tabdr 81 Mg PO [place] 3 1000 mg ([place]-3 Fatty Acids) 1 Cap Cap 2 Gm PO BID Allergies: Coded Allergies: Morphine (Verified Allergy, Severe, 10/29/16) CONFIRM? Flexeril (Verified Adverse Reaction, Mild, FATIGUE, NERVOUSNESS, CONFUSION , 10/29/16) Tramadol (Verified Adverse Reaction, Mild, FATIGUE, NERVOUSNESS, CONFUSION , 10/29/16) Family History Father heart problems Social History Quit smoking in 1979 used to smoke 1-1/2 packs per day Denies alcohol use or illicit drug use. Physical Exam Vital Signs Vital Signs Date Time Temp Pulse Resp B/P Pulse Ox O2 Delivery O2 Flow Rate FiO2 11/10/16 08:34 98.1 72 19 144/67 96 Room Air 11/10/16 08:34 96 Room Air 11/10/16 08:29 95 95 Room Air 11/10/16 08:20 97.8 84 15 160/70 94 Physical Exam GENERAL: This is a pleasant 76 yo male, well-nourished, well-developed patient, in no apparent distress. SKIN: No rashes, ecchymoses or lesions. Cool and dry. HEAD: Atraumatic. Normocephalic. No temporal or scalp tenderness. EYES: Pupils equal round and reactive. Extraocular motions intact. No scleral icterus. No injection or drainage. ENT: Nose without bleeding, purulent drainage or septal hematoma. Throat without erythema, tonsillar hypertrophy or exudate. Uvula midline. Airway patent. NECK: Trachea midline. No JVD or lymphadenopathy. Supple, nontender, no meningeal signs. CARDIOVASCULAR: Regular rate and rhythm without murmurs, gallops, or rubs. RESPIRATORY: Breath sounds decreased Bilaterally, rhonchi present, scattered wheezing, cough. No accessory muscle use. GASTROINTESTINAL: Abdomen soft, non-tender, nondistended. No hepato-splenomegaly , or palpable masses. No guarding. MUSCULOSKELETAL: Extremities without clubbing, cyanosis, or edema. No joint tenderness, effusion, or edema noted. No calf tenderness. Negative Homans sign bilaterally. NEUROLOGICAL: Awake and alert. Cranial nerves II through XII intact. Motor and sensory grossly within normal limits. Five out of 5 muscle strength in all muscle groups. Normal speech. Laboratory Laboratory Tests Test 11/10/16 11/10/16 08:50 09:00 White Blood Count 12.7 Red Blood Count 4.21 Hemoglobin 13.1 Hematocrit 39.2 Mean Corpuscular Volume 93.3 Mean Corpuscular Hemoglobin 31.1 Mean Corpuscular Hemoglobin 33.3 Concent Red Cell Distribution Width 13.4 Platelet Count 267 Mean Platelet Volume 9.5 Neutrophils (%) (Auto) 77.8 Lymphocytes (%) (Auto) 10.6 Monocytes (%) (Auto) 10.7 Eosinophils (%) (Auto) 0.6 Basophils (%) (Auto) 0.3 Neutrophils # (Auto) 9.9 Lymphocytes # (Auto) 1.3 Monocytes # (Auto) 1.4 Eosinophils # (Auto) 0.1 Basophils # (Auto) 0.0 CBC Comment DIFF FINAL Differential Comment Sodium Level 134 Potassium Level 4.4 Chloride Level 96 Carbon Dioxide Level 30.7 Anion Gap 7 Blood Urea Nitrogen 21 Creatinine 0.99 Estimat Glomerular Filtration 73 Rate Random Glucose 209 Calcium Level 9.0 Troponin I LESS THAN 0.02 Urine Color YELLOW Urine Turbidity CLEAR Urine pH 6.0 Urine Specific [place] 1.017 Urine Protein 30 Urine Glucose (UA) TRACE Urine Ketones NEG Urine Occult Blood NEG Urine Nitrite NEG Urine Bilirubin NEG Urine Urobilinogen LESS THAN 2.0 Urine Leukocyte Esterase NEG Urine RBC LESS THAN 1 Microscopic Urinalysis Comment CULT NOT INDICATED B-Type Natriuretic Peptide 192 Date/Time Procedure Status Source Growth 11/10/16 08:50 Aerobic Blood Culture Received Blood Peripheral Pending 11/10/16 08:50 Anaerobic Blood Culture Received Blood Peripheral Pending Result Diagram: 11/10/16 0850 11/10/16 0850 Imaging Last Impressions Chest X-Ray 11/10/16 0831 Signed Impressions: Service Date/Time: Thursday, November 10, 2016 08:54 - CONCLUSION: 1. Diffuse interstitial prominence could be interstitial edema versus interstitial lung disease. 2. The right upper lobe and bibasilar airspace disease. Rell Wild MD Assessment and Plan Assessment and Plan 76 yo male with CHF exacerbation CAP. Leukocytosis no signs of sepsis BNP 200s CXR reviewed and findings discussed with ED physician: Diffuse interstitial prominence could be interstitial edema versus interstitial lung disease. The right upper lobe and bibasilar airspace disease Blood cx obatined and pending Check sputum culture Check Legionella antigen, pneumococcal Ag in the urine Duonebs as need Oxygen by NC, keep O2 sat > 94 Mucinex Start IV abx Rocephin and Azithro IV Lasix 40 mg IV bid, monitor kidney function closely as might worsened with lasix Strict I&Os. Weight daily [place] pain pain scale, monitor for sedation and respiratory function Coronary artery disease with 4 stents in the past, and angioplasties, hypertension, hyperlipidemia, hypothyroidism, back pain. Stable at this time Restart home meds. DVT ppx lovenox, SCD/TEDs Discussed Condition With Patient, nurse. Brianna Lund MD November 10, 2016 11:33
--- NOTE | 2016-11-10 13:36 | EKG ---
Date Performed: 11/10/2016 Time Performed: 08:29:59 PTAGE: 76 years EKG: Sinus rhythm BORDERLINE LEFT AXIS DEVIATION Since previous tracing, no significant change noted BORDERLINE ECG PREVIOUS TRACING : 10/10/2016 11.34 DOCTOR: Luda Ledesma Interpretating Date/Time 11/10/2016 13:35:17
[2016-11-10] MEDS: ENOXAPARIN SODIUM 40 MG/0.4 ML SYRINGE SQ SCH (13:39)
[2016-11-10] MEDS ORDERED: ACETAMINOPHEN/HYDROcodone 325 MG/10 MG TAB PO PRN (14:00)
[2016-11-10] MEDS: ACETAMINOPHEN/HYDROcodone 325 MG/7.5 MG TAB PO PRN (14:25)
[2016-11-10] MEDS ORDERED: GLUCAGON 1 MG/ML VIAL OTHER PRN (15:30)
[2016-11-10] MEDS ORDERED: DEXTROSE 50% IN WATER 50 ML VIAL(D50) IV PUSH PRN (15:30)
[2016-11-10] MEDS ORDERED: LORazepam 0.5 MG TAB PO PRN (16:00)
[2016-11-10] MEDS: INSULIN ASPART SUPPLEMENTAL SCALE SQ SCH ×2 (17:55→20:51)
[2016-11-10] MEDS: GABAPENTIN 300 MG CAP PO SCH (17:59)
[2016-11-10] MEDS: PRAVASTATIN SOD 80 MG TAB PO SCH (20:52)
[2016-11-10] MEDS: RAMIPRIL 5 MG CAP PO SCH (20:52)
[2016-11-10] MEDS: SODIUM CHLORIDE 0.9% FLUSH 10 ML FLUSH IV FLUSH SCH (20:53)
[2016-11-11] VITALS (8 sets, daily range): BP systolic 107–153; BP diastolic 56–74; PULSE 70–103; RESP 17–18; TEMP 96.8–99.1; O2SAT 93–96
[2016-11-11] MEDS: ACETAMINOPHEN/HYDROcodone 325 MG/7.5 MG TAB PO PRN ×3 (05:28→20:52)
[2016-11-11] MEDS: INSULIN ASPART SUPPLEMENTAL SCALE SQ SCH ×4 (06:25→20:54)
[2016-11-11] MEDS: METOPROLOL TARTRATE 50 MG TAB PO SCH (07:58)
[2016-11-11] MEDS: LEVOTHYROXINE SODIUM 75 MCG TAB PO SCH (07:58)
[2016-11-11] MEDS: CLOPIDOGREL 75 MG TAB PO SCH (07:58)
[2016-11-11] MEDS: GABAPENTIN 300 MG CAP PO SCH ×3 (07:59→16:15)
[2016-11-11] MEDS: NIACIN 500 MG EXTENDED RELEASE TAB PO SCH (07:59)
[2016-11-11] MEDS: SODIUM CHLORIDE 0.9% FLUSH 10 ML FLUSH IV FLUSH SCH ×2 (07:59→20:54)
[2016-11-11] MEDS: RAMIPRIL 5 MG CAP PO SCH ×2 (07:59→20:51)
[2016-11-11] MEDS: DOCUSATE SODIUM 100 MG CAP PO SCH ×2 (08:00→20:54)
[2016-11-11 08:16] LABS: ALKALINE PHOSPHATASE 166 U/L (45-117); ALT (GPT) 21 U/L (12-78); ANION GAP 9 MEQ/L (5-15); AST (GOT) 25 U/L (15-37); BICARBONATE 32.6 MEQ/L (21.0-32.0); BLOOD UREA NITROGEN 15 MG/DL (7-18); CHLORIDE 96 MEQ/L (98-107); GLOMERULAR FILTRATION RATE 83 ML/MIN (>89); POTASSIUM 3.5 MEQ/L (3.5-5.1); SODIUM (NA) 138 MEQ/L (136-145); TOTAL BILIRUBIN ADULT 0.6 MG/DL (0.2-1.0)
[2016-11-11] MEDS ORDERED: guaiFENesin/DEXTROMETHORPHAN 200 MG/20 MG/10 ML CUP PO PRN (08:30)
[2016-11-11] MEDS: guaiFENesin E.R. 600 MG TAB PO SCH ×2 (09:12→20:51)
[2016-11-11] MEDS: cefTRIAXone INJ 1,000 MG in SODIUM CHLORIDE 0.9% INJ 100 ML IV SCH (09:14)
[2016-11-11] MEDS: ENOXAPARIN SODIUM 40 MG/0.4 ML SYRINGE SQ SCH (11:07)
[2016-11-11] MEDS: AZITHROMYCIN INJ 500 MG in SODIUM CHLOR 0.9% 250 ML INJ 250 ML IV SCH (11:08)
--- NOTE | 2016-11-11 13:07 | HHI.PR ---
Subjective Remarks Less cough today , still with sob. No n/v/d/c. Denies chest pain. No fever or chills. Friends are visiting him. Objective Vitals Vital Signs Date Time Temp Pulse Resp B/P Pulse Ox O2 Delivery O2 Flow Rate FiO2 11/11/16 11:09 98.0 71 18 124/56 96 11/11/16 09:33 70 11/11/16 08:08 Room Air 11/11/16 08:00 96.8 102 17 127/68 94 11/11/16 04:00 98.3 103 18 136/74 93 11/11/16 00:00 98.8 96 17 153/69 93 11/10/16 20:50 94 11/10/16 20:28 93 11/10/16 20:00 97.7 84 18 144/65 96 11/10/16 15:16 97.5 75 18 121/68 94 11/10/16 13:23 97.6 83 18 130/66 96 I/O 11/10/16 11/10/16 11/10/16 11/11/16 11/11/16 11/11/16 07:00 15:00 23:00 07:00 15:00 23:00 Intake Total 240 ml 240 ml 240 ml Output Total 950 ml 800 ml 500 ml Balance -710 ml -560 ml -260 ml Intake Oral 240 ml 240 ml 240 ml Output Urine Total 950 ml 800 ml 500 ml # Voids 0 # Bowel Movements 1 0 0 Result Diagram: 11/10/16 0850 11/11/16 0622 Imaging Last Impressions Chest X-Ray 11/10/16 0831 Signed Impressions: Service Date/Time: Thursday, November 10, 2016 08:54 - CONCLUSION: 1. Diffuse interstitial prominence could be interstitial edema versus interstitial lung disease. 2. The right upper lobe and bibasilar airspace disease. Rell Wild MD Objective Remarks GENERAL: This is a pleasant 76 yo male, well-nourished, well-developed patient, in no apparent distress. SKIN: No rashes, ecchymoses or lesions. Cool and dry. HEAD: Atraumatic. Normocephalic. No temporal or scalp tenderness. EYES: Pupils equal round and reactive. Extraocular motions intact. No scleral icterus. No injection or drainage. ENT: Nose without bleeding, purulent drainage or septal hematoma. Throat without erythema, tonsillar hypertrophy or exudate. Uvula midline. Airway patent. NECK: Trachea midline. No JVD or lymphadenopathy. Supple, nontender, no meningeal signs. CARDIOVASCULAR: Regular rate and rhythm without murmurs, gallops, or rubs. RESPIRATORY: Breath sounds decreased Bilaterally, rhonchi present, scattered wheezing, cough. No accessory muscle use. GASTROINTESTINAL: Abdomen soft, non-tender, nondistended. No hepato-splenomegaly , or palpable masses. No guarding. MUSCULOSKELETAL: Extremities without clubbing, cyanosis, or edema. No joint tenderness, effusion, or edema noted. No calf tenderness. Negative Homans sign bilaterally. NEUROLOGICAL: Awake and alert. Cranial nerves II through XII intact. Motor and sensory grossly within normal limits. Five out of 5 muscle strength in all muscle groups. Normal speech. A/P Assessment and Plan 76 yo male with CHF exacerbation EF 45 % mild systolic dysfunction CAP. Leukocytosis no signs of sepsis BNP 200s CXR reviewed and findings discussed with ED physician: Diffuse interstitial prominence could be interstitial edema versus interstitial lung disease. The right upper lobe and bibasilar airspace disease Blood cx obatined and pending Check sputum culture Check Legionella antigen, pneumococcal Ag in the urine Duonebs as need Oxygen by NC, keep O2 sat > 94 Mucinex Start IV abx Rocephin and Azithro IV Lasix 40 mg IV bid, monitor kidney function closely as might worsened with lasix Strict I&Os. Weight daily [place] pain pain scale, monitor for sedation and respiratory function Coronary artery disease with 4 stents in the past, and angioplasties, hypertension, hyperlipidemia, hypothyroidism, back pain. Stable at this time Restart home meds. DVT ppx lovenox, SCD/TEDs Discussed Condition With Patient, nurse. Brianna Lund MD November 11, 2016 13:07
[2016-11-11] MEDS ORDERED: RESP: ALBUTEROL 2.5 MG/IPRATROPIUM 0.5 MG NEB (PRN) NEB (13:15)
--- NOTE | 2016-11-11 13:58 | EC ---
Study Study Date:11/11/2016 STUDY CONCLUSIONS SUMMARY - Left ventricle: The cavity size was normal. Wall thickness was normal. Systolic function was mildly reduced. The estimated ejection fraction was 45%, in the range of 45% to 50%. Regional wall motion abnormalities cannot be excluded. - Aortic valve: Valve area: 3.36cm^2 (Vmax). - Mitral valve: Mildly calcified annulus. If LV function is below 40, please consider prescribing an ACEI or ARB or document rationale for non-use. PROCEDURE DATA STUDY STATUS: Elective. Procedure: Transthoracic echocardiography. Image quality was fair. Scanning was performed from the parasternal, apical, and subcostal acoustic windows. Study completion: The patient tolerated the procedure well. Transthoracic echocardiography. M-mode, complete 2D, complete spectral Doppler, and color Doppler. Height: Height: 71in. Weight: Weight: 245.5lb. Body mass index: BMI: 34.3kg/m^2. Body surface area: BSA: 2.3m^2. Patient status: Inpatient. CARDIAC ANATOMY LEFT VENTRICLE: The cavity size was normal. Wall thickness was normal. Systolic function was mildly reduced. The estimated ejection fraction was 45%, in the range of 45% to 50%. Regional wall motion abnormalities cannot be excluded. AORTIC VALVE: Trileaflet; normal thickness, mildly calcified leaflets. Doppler: Transvalvular velocity was within the normal range. There was no stenosis. No regurgitation. Valve area: 3.36cm^2 (Vmax). Indexed valve area: 1.46cm^2/m^2 (Vmax). AORTA: Aortic root: The aortic root was normal in size. MITRAL VALVE: Mildly calcified annulus. Doppler: Transvalvular velocity was within the normal range. There was no evidence for stenosis. No regurgitation. LEFT ATRIUM: The atrium was normal in size. RIGHT VENTRICLE: The cavity size was normal. Wall thickness was normal. PULMONIC VALVE: Doppler: Transvalvular velocity was within the normal range. There was no evidence for stenosis. Trace regurgitation. TRICUSPID VALVE: Structurally normal valve. Doppler: Transvalvular velocity was within the normal range. No regurgitation. PULMONARY ARTERY: The main pulmonary artery was normal-sized. Systolic pressure was within the normal range. RIGHT ATRIUM: The atrium was normal in size. PERICARDIUM: There was no pericardial effusion. SYSTEMIC VEINS: Inferior vena cava: The vessel was normal in size. Patient weight: 245.5lb _Ejection fraction:_ 65-75% _Fractional shortening:_ 32% up to 5Kg 5-11.5Kg 11.6-22.9Kg 23-45Kg 45-57Kg Aortic Root 7-13 <17 13-22 17-27 17-27 LA diam 6-13 <23 24-38 33-47 37-40 RVID 10-17 7-15 7-15 7-18 8-17 LVIDd 12-22 <32 24-38 33-47 37-40 LVPW 2-4 3-6 5-7 6-8 7-8 IVS 2-4 3-6 5-7 6-8 7-8 BASIC MEASUREMENTS ADULT NORMAL Left ventricle LV internal dimension, ED, chordal *53.7 mm 43-52 level, PLAX LV internal dimension, ES, chordal *43.5 mm 23-38 level, PLAX Fractional shortening, chordal level, *19 % >29 PLAX LV posterior wall thickness, ED 11.1 mm IVS/LVPW ratio, ED 0.95 <1.3 Ventricular septum Septal thickness, ED 10.5 mm Aortic valve Leaflet separation 22 mm 15-26 BASIC MEASUREMENTS ADULT NORMAL Aortic valve Leaflet separation 22 mm 15-26 Aorta Root diameter, ED 37 mm 20-37 Left atrium Anterior-posterior dimension, ES 31 mm 19-40 Anterior-posterior dimension index, ES 1.35 cm/m^2 <2.2 LA/aortic root ratio 0.84 DOPPLER MEASUREMENTS ADULT NORMAL Aortic valve Peak velocity, S 103 cm/s Valve area, Vmax 3.36 cm^2 Valve area index, Vmax 1.46 cm^2/m^2 Mitral valve Peak E-wave velocity 69.1 cm/s Peak A-wave velocity 114 cm/s Deceleration time *130 ms 150-230 Peak E/A ratio 0.6 Pulmonic valve Peak velocity, S 110 cm/s Regurgitant velocity, ED 93.7 cm/s LEGEND: Mean values are shown as u=mean value. Asterisk (*) avilez values outside specified normal range. Prepared and signed by Tommie Lopez [id number]
--- NOTE | 2016-11-11 18:01 | PD.CONS ---
HPI Service Urology Consult Requested By Reason for Consult Hematuria Primary Care Physician Sirisha Silva MD Diagnosis: History of Present Illness 76yo male with history of CAD with [address] on Plavix as well as HTN and hyperlipidemia currently admitted with Pneumonia seen in consultation for hematuria. Patient reports he has never seen blood in his urine before. The blood began after soto catheter placement. Patient denies any issues voiding, reporting a strong urinary stream, no straining to void, without a history of UTIs. He is currently not taking any medication to help him void nor is he on any medications for his prostate. Currently denies any fevers, chills, N/V, abdominal or flank pain. Review of Systems ROS Limitations: Clinical Condition Constitutional: DENIES: Fever Eyes: DENIES: Blurred vision Ears, nose, mouth, throat: DENIES: Hearing loss Respiratory: DENIES: Apneas Cardiovascular: DENIES: Chest pain Gastrointestinal: DENIES: Abdominal pain Genitourinary: COMPLAINS OF: Hematuria, DENIES: Dysuria, Nocturia Musculoskeletal: COMPLAINS OF: Back pain Integumentary: DENIES: Rash Hematologic/lymphatic: DENIES: Bruising Immunologic/allergic: DENIES: Eczema Neurologic: DENIES: Headache Psychiatric: DENIES: Anxiety Except as stated in HPI: all other systems reviewed are Neg Past Family Social History Past Medical History Past Medical History coronary artery disease, 4 stents in the past hypertension hyperlipidemia hypothyroidism Past Surgical History Recent back surgery by Dr. Rothman 10/15/16 Cardiac catheterization Reported Medications Reported Meds & Active Scripts Active Hydrocodone-Acetaminophen 10-325 mg Tab 1 Tab PO Q6HR PRN Neurontin (Gabapentin) 300 Mg Cap 600 Mg PO TID Reported Lovaza (Znded-9-Nwhk Ethyl Esters) 1 Gm Cap 2 Gm PO BID Metoprolol Tartrate 50 Mg Tab 50 Mg PO DAILY Zocor (Simvastatin) 40 Mg Tab 40 Mg PO HS Synthroid (Levothyroxine Sodium) 75 Mcg Tab 75 Mcg PO DAILY Ramipril 5 Mg Cap 5 Mg PO BID Plavix (Clopidogrel Bisulfate) 75 Mg Tab 75 Mg PO DAILY Niacin (Niacinamide) 500 Mg Tab 1,500 Mg PO DAILY Metformin (Metformin HCl) 500 Mg Tab 500 Mg PO BIDPC With meals Aspir-Low (Aspirin) 81 Mg Tabdr 81 Mg PO [place] 3 1000 mg ([place]-3 Fatty Acids) 1 Cap Cap 2 Gm PO BID Allergies: Coded Allergies: Morphine (Verified Allergy, Severe, 10/29/16) CONFIRM? Flexeril (Verified Adverse Reaction, Mild, FATIGUE, NERVOUSNESS, CONFUSION , 10/29/16) Tramadol (Verified Adverse Reaction, Mild, FATIGUE, NERVOUSNESS, CONFUSION , 10/29/16) Active Ordered Medications Current Medications Medications (Trade) Dose Ordered Sig/Sarah Route Start Time Stop Time Status Last Admin (NS Flush) 2 ml UNSCH PRN IVF 11/10/16 08:45 11/10/16 10:57 (NS Flush) 2 ml UNSCH PRN IV FLUSH 11/10/16 11:30 (NS Flush) 2 ml BID IV FLUSH 11/10/16 21:00 11/11/16 07:59 (Tylenol) 650 mg Q4H PRN PO 11/10/16 11:30 (Zofran Inj) 4 mg Q6H PRN IVP 11/10/16 11:30 (Colace) 100 mg Q12HR PO 11/10/16 11:30 11/10/16 20:52 (Milk Of Magnesia Liq) 30 ml Q12H PRN PO 11/10/16 11:30 (Restoril) 15 mg HS PRN PO 11/10/16 11:30 Enoxaparin Sodium 40 mg 40 mg Q24H SQ 11/10/16 13:00 11/11/16 11:07 Ceftriaxone Sodium 1000 mg/ Sodium Chloride 100 ml @ 200 mls/hr Q24H IV 11/11/16 10:00 11/11/16 09:14 (Zithromax Inj/ NS 250 ml Inj) 250 ml @ 250 mls/hr Q24H IV 11/11/16 11:00 11/11/16 11:08 (Plavix) 75 mg DAILY PO 11/11/16 09:00 11/11/16 07:58 (Neurontin) 600 mg TID PO 11/10/16 18:00 11/11/16 16:15 (Synthroid) 75 mcg DAILY PO 11/11/16 09:00 11/11/16 07:58 (Lopressor) 50 mg DAILY PO 11/11/16 09:00 11/11/16 07:58 (Altace) 5 mg BID PO 11/10/16 21:00 11/11/16 07:59 (Slo-Niacin) 1,500 mg DAILY PO 11/11/16 09:00 11/11/16 07:59 (Pravachol) 80 mg HS PO 11/10/16 21:00 11/10/16 20:52 ([place] 7.5-325 Mg) 1 tab Q6H PRN PO 11/10/16 14:00 11/11/16 11:08 ([place] 10-325 Mg) 1 tab Q6H PRN PO 11/10/16 14:00 (D50w (Vial) Inj) 25 ml UNSCH PRN IV PUSH 11/10/16 15:30 (Glucagon Inj) 1 mg UNSCH PRN OTHER 11/10/16 15:30 (Ativan) 0.5 mg Q8H PRN PO 11/10/16 16:00 (Mucinex Er) 600 mg BID PO 11/11/16 09:00 11/11/16 09:12 (Robitussin Dm 200-20 Mg/10 ml Liq) 10 ml Q6H PRN PO 11/11/16 08:30 Family History Father heart problems No urological malignancy Social History Quit smoking in 1979 used to smoke 1-1/2 packs per day Denies alcohol use or illicit drug use. Physical Exam Vital Signs Date Time Temp Pulse Resp B/P Pulse Ox O2 Delivery O2 Flow Rate FiO2 11/11/16 16:09 99.1 89 17 107/65 94 11/11/16 11:09 98.0 71 18 124/56 96 11/11/16 09:33 70 11/11/16 08:08 Room Air 11/11/16 08:00 96.8 102 17 127/68 94 11/11/16 04:00 98.3 103 18 136/74 93 11/11/16 00:00 98.8 96 17 153/69 93 11/10/16 20:50 94 11/10/16 20:28 93 11/10/16 20:00 97.7 84 18 144/65 96 Physical Exam GENERAL: This is a well-nourished, well-developed patient, in no apparent distress. SKIN: No rashes, ecchymoses or lesions. Cool and dry. HEAD: Atraumatic. Normocephalic. EYES: Extraocular motions intact. No scleral icterus. No injection or drainage. ENT: Nose without bleeding, purulent drainage. Airway patent. NECK: Trachea midline. No JVD or lymphadenopathy. CARDIOVASCULAR: normal pulses, extremities well perfused. RESPIRATORY: nonlabored, equal chest rise GASTROINTESTINAL: Abdomen soft, non-tender, nondistended. GENITOURINARY: Circumcised phallus, normal urethral meatus, no lesions. Soto catheter in place, light pink to yellow urine noted MUSCULOSKELETAL: Extremities without clubbing, cyanosis, or edema. NEUROLOGICAL: Awake and alert. Motor and sensory grossly within normal limits. Normal speech. Lab results reviewed: Yes Laboratory Tests Test 11/11/16 06:22 Sodium Level 138 Potassium Level 3.5 Chloride Level 96 Carbon Dioxide Level 32.6 Anion Gap 9 Blood Urea Nitrogen 15 Creatinine 0.89 Estimat Glomerular Filtration 83 Rate Random Glucose 192 Calcium Level 9.0 Total Bilirubin 0.6 Aspartate Amino Transf 25 (AST/SGOT) Alanine Aminotransferase 21 (ALT/SGPT) Alkaline Phosphatase 166 Total Protein 7.6 Albumin 2.8 Date/Time Procedure Status Source Growth 11/10/16 08:50 Aerobic Blood Culture - Preliminary Resulted Blood Peripheral NO GROWTH IN 1 DAY 11/10/16 08:50 Anaerobic Blood Culture - Preliminary Resulted Blood Peripheral NO GROWTH IN 1 DAY Result Diagram: 11/10/16 0850 11/11/16621 Imaging Last Impressions Chest X-Ray 11/10/16830 Signed Impressions: Service Date/Time: Saturday, November 10, 2016 08:54 - CONCLUSION: 1. Diffuse interstitial prominence could be interstitial edema versus interstitial lung disease. 2. The right upper lobe and bibasilar airspace disease. Rell Wild MD Assessment and Plan Problem List: (1) Hematuria ICD Code: R31.9 Status: Acute (2) PNA (pneumonia) ICD Code: J18.9 Status: Acute (3) CAD (coronary artery disease) ICD Code: I25.10 Status: Acute Assessment and Plan 76yo male with gross hematuria likely secondary to traumatic soto catheter -Hematuria appears to be clearing up -Soto catheter may be removed prior to discharge -No immediate intervention indicated at this time -Patient to follow-up with Urology in clinic after discharge to ensure clearance of hematuria and further evaluation if necessary -Please call with questions Problem Qualifiers (1) PNA (pneumonia): Qualified Code: J18.9 - Pneumonia of both lungs due to infectious organism, unspecified part of lung Javi Ford MD November 11, 2016 18:01
[2016-11-11] MEDS: PRAVASTATIN SOD 80 MG TAB PO SCH (20:51)
[2016-11-12 00:34] VITALS: BP 122/65; PULSE 87; RESP 18; TEMP 98.5; O2SAT 95
[2016-11-12 04:45] VITALS: BP 139/69; PULSE 90; RESP 17; TEMP 97.3; O2SAT 95
[2016-11-12] MEDS: INSULIN ASPART SUPPLEMENTAL SCALE SQ SCH ×3 (07:00→16:18)
[2016-11-12 08:00] VITALS: BP 123/67; PULSE 99; RESP 18; TEMP 98.1; O2SAT 93
[2016-11-12] MEDS: SODIUM CHLORIDE 0.9% FLUSH 10 ML FLUSH IV FLUSH SCH (08:36)
[2016-11-12] MEDS: DOCUSATE SODIUM 100 MG CAP PO SCH (08:37)
[2016-11-12] MEDS: LEVOTHYROXINE SODIUM 75 MCG TAB PO SCH (08:37)
[2016-11-12] MEDS: guaiFENesin E.R. 600 MG TAB PO SCH (08:37)
[2016-11-12] MEDS: RAMIPRIL 5 MG CAP PO SCH (08:37)
[2016-11-12] MEDS: NIACIN 500 MG EXTENDED RELEASE TAB PO SCH (08:37)
[2016-11-12] MEDS: GABAPENTIN 300 MG CAP PO SCH ×2 (08:38→12:04)
[2016-11-12] MEDS: METOPROLOL TARTRATE 50 MG TAB PO SCH (08:38)
[2016-11-12] MEDS: CLOPIDOGREL 75 MG TAB PO SCH (08:38)
[2016-11-12 08:45] VITALS: O2SAT 93
[2016-11-12] MEDS: ACETAMINOPHEN/HYDROcodone 325 MG/7.5 MG TAB PO PRN ×2 (08:46→16:20)
[2016-11-12] MEDS ORDERED: PRED10PA PO (09:49)
[2016-11-12] MEDS ORDERED: CEFT500T3 PO (09:49)
[2016-11-12] MEDS ORDERED: LACTCHW3 CHEW (09:49)
--- NOTE | 2016-11-12 09:50 | HHI.DS ---
Discharge Summary Admission Date November 10, 2016 at 11:08 Discharge Date: November 12, 2016 Admitting Diagnosis PNA, CHF (1) Acute respiratory failure ICD Code: J96.00 Diagnosis: Principal (2) Hypoxia ICD Code: R09.02 Diagnosis: Principal (3) PNA (pneumonia) ICD Code: J18.9 Diagnosis: Principal (4) Hypertension ICD Code: I10 Diagnosis: Secondary (5) Hyperlipidemia ICD Code: E78.5 Diagnosis: Secondary (6) CHF (congestive heart failure) ICD Code: I50.9 Diagnosis: Secondary (7) CAD (coronary artery disease) ICD Code: I25.10 Diagnosis: Secondary (8) Diabetes mellitus ICD Code: E11.9 Diagnosis: Secondary (9) Hematuria ICD Code: R31.9 Diagnosis: Secondary (10) Low back pain ICD Code: M54.5 Diagnosis: Secondary Procedures none Brief History - From Admission Pleasant 76 -year-old male with past medical history of coronary artery disease with 4 stents in the past, and angioplasties, hypertension, hyperlipidemia, hypothyroidism, recent back surgery. Patient presents to the emergency room with complaints of worsening shortness of breath for the past 2 days. There is no associated lower extremity edema and he also complains of reductive cough clear whitish sputum no blood in it. Occasional fevers and chills. Doesn't use oxygen at home. He denies chest pain, palpitations, lightheadedness, diaphoresis, nausea. He has constipation , 2/2 norco use for back pain after the surgery. Denies urinary complaints. There is no lower extremity edema. CBC/BMP: 11/10/16 0850 11/11/16 0622 Significant Findings Laboratory Tests Test 11/10/16 11/10/16 11/11/16 08:50 09:00 06:22 White Blood Count 12.7 TH/MM3 (4.0-11.0) Red Blood Count 4.21 MIL/MM3 (4.50-5.90) Neutrophils (%) (Auto) 77.8 % (16.0-70.0) Monocytes (%) (Auto) 10.7 % (0.0-8.0) Neutrophils # (Auto) 9.9 TH/MM3 (1.8-7.7) Monocytes # (Auto) 1.4 TH/MM3 (0-0.9) Sodium Level 134 MEQ/L (136-145) Chloride Level 96 MEQ/L 96 MEQ/L (98-107) (98-107) Blood Urea Nitrogen 21 MG/DL (7-18) Estimat Glomerular Filtration 73 ML/MIN (>89) 83 ML/MIN (>89) Rate Random Glucose 209 MG/DL 192 MG/DL (74-106) (74-106) Troponin I LESS THAN 0.02 NG/ML (0.02-0.05) Urine Protein 30 mg/dL (NEG-TRACE) B-Type Natriuretic Peptide 192 PG/ML (0-100) Carbon Dioxide Level 32.6 MEQ/L (21.0-32.0) Alkaline Phosphatase 166 U/L (45-117) Albumin 2.8 GM/DL (3.4-5.0) Imaging Last Impressions Chest X-Ray 11/10/16 0831 Signed Impressions: Service Date/Time: Thursday, November 10, 2016 08:54 - CONCLUSION: 1. Diffuse interstitial prominence could be interstitial edema versus interstitial lung disease. 2. The right upper lobe and bibasilar airspace disease. Rell Wild MD PE at Discharge GENERAL: This is a pleasant 76 yo male, well-nourished, well-developed patient, in no apparent distress. SKIN: No rashes, ecchymoses or lesions. Cool and dry. HEAD: Atraumatic. Normocephalic. No temporal or scalp tenderness. EYES: Pupils equal round and reactive. Extraocular motions intact. No scleral icterus. No injection or drainage. ENT: Nose without bleeding, purulent drainage or septal hematoma. Throat without erythema, tonsillar hypertrophy or exudate. Uvula midline. Airway patent. NECK: Trachea midline. No JVD or lymphadenopathy. Supple, nontender, no meningeal signs. CARDIOVASCULAR: Regular rate and rhythm without murmurs, gallops, or rubs. RESPIRATORY: Breath sounds decreased Bilaterally, rhonchi present, scattered wheezing, cough. No accessory muscle use. GASTROINTESTINAL: Abdomen soft, non-tender, nondistended. No hepato-splenomegaly , or palpable masses. No guarding. MUSCULOSKELETAL: Extremities without clubbing, cyanosis, or edema. No joint tenderness, effusion, or edema noted. No calf tenderness. Negative Homans sign bilaterally. NEUROLOGICAL: Awake and alert. Cranial nerves II through XII intact. Motor and sensory grossly within normal limits. Five out of 5 muscle strength in all muscle groups. Normal speech. Hospital Course 76 yo male with CHF exacerbation EF 45 % mild systolic dysfunction Acute respiratory failure requiring O2 , improving. patient needs O2 at DC. Patient to followup as Op with pulm CAP. Leukocytosis no signs of sepsis BNP 200s CXR reviewed and findings discussed with ED physician: Diffuse interstitial prominence could be interstitial edema versus interstitial lung disease. The right upper lobe and bibasilar airspace disease Blood cx obatined and NTD Check sputum culture pending Check Legionella antigen, pneumococcal Ag in the urine negative Duonebs as need Oxygen by NC, keep O2 sat > 94 Added steroids PO , taper at DC Mucinex Start IV abx Rocephin and Azithro IV Lasix monitor kidney function closely as might worsened with lasix Strict I&Os. Weight daily [place] pain pain scale, monitor for sedation and respiratory function Coronary artery disease with 4 stents in the past, and angioplasties, hypertension, hyperlipidemia, hypothyroidism, back pain. Stable at this time Restart home meds. he was noted with hematuria , consult urology considers traumatic from stoo , patient to follow up as OP with urology. Soto removed, hematuria subsided. DVT ppx lovenox, SCD/TEDs Discussed Condition With Patient, nurse. Failed O2 walking test. Patient needs O2 at home. Discussed with case management, nurse and the patient discharge plan. Patient improved DC home with home health and O2. patient to followup as OP with PCP and consultants. Pt Condition on Discharge: Stable Discharge Disposition: Disch w/ Home Health Serv Discharge Time: > 30 minutes Discharge Instructions DIET: Follow Instructions for: Heart Healthy Diet Activities you can perform: Regular-No Restrictions Follow up Referrals: PCP Follow-up - 2-3 Days Pulmonology - 1 Week SNF/[facility]/ with [facility] [phone] Urology - 1 Week with Javi Ford MD New Medications: Cefuroxime (Ceftin) 500 Mg Tab 500 MG PO BID Infection #14 Ref 0 TAB Furosemide (Lasix) 20 Mg Tab 20 MG PO DAILY chf #30 Ref 0 TAB Guaifenesin ER 12 HR (Mucinex ER 12 HR) 600 Mg [place] 600 MG PO BID Chest Congestion/Cough #10 Ref 0 TAB Lactobacillus Acidophilus (Lactinex) 1 Chew 1 TAB CHEW DAILY Nutritional Supplement #14 Ref 0 TAB Oxygen tank (Oxygen tank) 1 Ea Tank 2 LITER CAROLYNE.CANULA CONTINUOUS Oxygen Concentrator Portable Gaseous 2 L/min via Nasal Cannula Continuous For 99 months HYPOXEMIA PREVENTION #2 CYLINDER Potassium Chloride ER (Potassium Chloride ER) 10 Meq Cap 10 MEQ PO DAILY Electrolyte Replacement #30 Ref 0 CAP Prednisone (21) 10 mg tab Dose Pack (Prednisone (21) 10 mg tab Dose Pack) 10 Mg Pack 10 MG PO DIRECTED Inflammation #1 Ref 0 DSPK Continued Medications: Aspirin DR (Aspir-Low) 81 Mg Tabdr 81 MG PO Blood Clot Prevention Clopidogrel (Plavix) 75 Mg Tab 75 MG PO DAILY Blood Clot Prevention Ref 0 TAB Gabapentin (Neurontin) 300 Mg Cap 600 MG PO TID #120 CAP Hydrocodone-Acetaminophen (Hydrocodone-Acetaminophen) 10-325 mg Tab 1 TAB PO Q6HR PRN pain #60 TAB Levothyroxine (Synthroid) 75 Mcg Tab 75 MCG PO DAILY Thyroid Ref 0 TAB Metformin (Metformin) 500 Mg Tab 500 MG PO BIDPC With meals Blood Sugar Management Ref 0 TAB Metoprolol Tartrate (Metoprolol Tartrate) 50 Mg Tab 50 MG PO DAILY Blood Pressure Management Ref 0 TAB Niacinamide (Niacin) 500 Mg Tab 1500 MG PO DAILY Cholesterol Management [place]-3 Fatty Acids ([place] 3 1000 mg) 1 Cap Cap 2 GM PO BID Cholesterol Management [place]-8-Nwnn Ethyl Esters (Lovaza) 1 Gm Cap 2 GM PO BID Manage Triglycerides #120 Ref 0 CAP Ramipril (Ramipril) 5 Mg Cap 5 MG PO BID Blood Pressure Management Ref 0 CAP Simvastatin (Zocor) 40 Mg Tab 40 MG PO HS Cholesterol Management Ref 0 TAB Brianna Lund MD November 12, 2016 09:50
[2016-11-12] MEDS ORDERED: predniSONE 50 MG TAB PO SCH (10:00)
[2016-11-12] MEDS: cefTRIAXone INJ 1,000 MG in SODIUM CHLORIDE 0.9% INJ 100 ML IV SCH (10:14)
[2016-11-12] MEDS: AZITHROMYCIN INJ 500 MG in SODIUM CHLOR 0.9% 250 ML INJ 250 ML IV SCH (10:15)
[2016-11-12 11:57] VITALS: BP 121/68; PULSE 67; RESP 18; TEMP 96.1; O2SAT 97
[2016-11-12] MEDS: ENOXAPARIN SODIUM 40 MG/0.4 ML SYRINGE SQ SCH (12:04)
[2016-11-12] MEDS ORDERED: FURO1TAB62 PO (12:28)
[2016-11-12] MEDS ORDERED: POTA10CA PO (12:28)
[2016-11-12] MEDS ORDERED: FUROSEMIDE 40 MG TAB PO ONE (12:30)
[2016-11-12] MEDS ORDERED: MUCI600T PO (12:30)
--- NOTE | 2016-11-12 13:39 | HHI.FF ---
Face to Face Verification Diagnosis: (1) PNA (pneumonia) (2) Hypertension (3) Hyperlipidemia (4) CHF (congestive heart failure) (5) CAD (coronary artery disease) (6) Diabetes mellitus Physical Therapy Order: Evaluate and Treat Home Health Nursing Order: Medical education Signs/symptoms of disease process Oxygen administration education Medication education-adverse effect Nursing assessment with vital signs I have seen patient Vlad Wan on 11/12/16. My clinical findings support the need for the requested home health care services because: Ltd mobility - disease progression Patient has SOB I certify that my clinical findings support that this patient is homebound because: Post-op weakness Brianna Lund MD November 12, 2016 13:39
[2016-11-12] MEDS ORDERED: OXYGENTANK NAS.CANULA (13:43)
--- NOTE | 2016-11-12 18:11 | HHI.PR ---
Subjective Remarks Patien tfeels much better. However when he walked today with PT he was noted desatting, will do a O2 walking test. Patient needs O2 at home. he fail o2 walking test. patient denies feeling sob at thsi time. he says he feels muc better and he wants to go home. No n/v/d/c. No feevr or chills. Cough is improved Objective Vitals Vital Signs Date Time Temp Pulse Resp B/P Pulse Ox O2 Delivery O2 Flow Rate FiO2 11/12/16 13:42 3.00 11/12/16 11:57 96.1 67 18 121/68 97 11/12/16 08:45 93 21 11/12/16 08:00 98.1 99 18 123/67 93 11/12/16 04:45 97.3 90 17 139/69 95 11/12/16 00:34 98.5 87 18 122/65 95 11/11/16 20:51 92 11/11/16 20:25 97.8 77 18 130/63 96 11/11/16 18:11 21 I/O 11/11/16 11/11/16 11/11/16 11/12/16 11/12/16 11/12/16 07:00 15:00 23:00 07:00 15:00 23:00 Intake Total 240 ml 480 ml 240 ml Output Total 500 ml 1625 ml 450 ml 650 ml Balance -260 ml -1145 ml -210 ml -650 ml Intake Oral 240 ml 480 ml 240 ml Output Urine Total 500 ml 1625 ml 450 ml 650 ml # Bowel Movements 0 1 0 Result Diagram: 11/10/16 0850 11/11/16 0622 Imaging Last Impressions Chest X-Ray 11/10/16 0831 Signed Impressions: Service Date/Time: Thursday, November 10, 2016 08:54 - CONCLUSION: 1. Diffuse interstitial prominence could be interstitial edema versus interstitial lung disease. 2. The right upper lobe and bibasilar airspace disease. Rell Wild MD Objective Remarks GENERAL: This is a pleasant 76 yo male, well-nourished, well-developed patient, in no apparent distress. SKIN: No rashes, ecchymoses or lesions. Cool and dry. HEAD: Atraumatic. Normocephalic. No temporal or scalp tenderness. EYES: Pupils equal round and reactive. Extraocular motions intact. No scleral icterus. No injection or drainage. ENT: Nose without bleeding, purulent drainage or septal hematoma. Throat without erythema, tonsillar hypertrophy or exudate. Uvula midline. Airway patent. NECK: Trachea midline. No JVD or lymphadenopathy. Supple, nontender, no meningeal signs. CARDIOVASCULAR: Regular rate and rhythm without murmurs, gallops, or rubs. RESPIRATORY: Breath sounds decreased Bilaterally, rhonchi present, scattered wheezing, cough. No accessory muscle use. GASTROINTESTINAL: Abdomen soft, non-tender, nondistended. No hepato-splenomegaly , or palpable masses. No guarding. MUSCULOSKELETAL: Extremities without clubbing, cyanosis, or edema. No joint tenderness, effusion, or edema noted. No calf tenderness. Negative Homans sign bilaterally. NEUROLOGICAL: Awake and alert. Cranial nerves II through XII intact. Motor and sensory grossly within normal limits. Five out of 5 muscle strength in all muscle groups. Normal speech. A/P Assessment and Plan 76 yo male with CHF exacerbation EF 45 % mild systolic dysfunction CAP. Leukocytosis no signs of sepsis BNP 200s CXR reviewed and findings discussed with ED physician: Diffuse interstitial prominence could be interstitial edema versus interstitial lung disease. The right upper lobe and bibasilar airspace disease Blood cx obatined and pending Check sputum culture Check Legionella antigen, pneumococcal Ag in the urine Duonebs as need Oxygen by NC, keep O2 sat > 94 Mucinex Start IV abx Rocephin and Azithro IV Lasix monitor kidney function closely as might worsened with lasix Strict I&Os. Weight daily [place] pain pain scale, monitor for sedation and respiratory function Coronary artery disease with 4 stents in the past, and angioplasties, hypertension, hyperlipidemia, hypothyroidism, back pain. Stable at this time Restart home meds. he was noted with hematuria , consult urology considers traumatic from soto , patient to follow up as OP with urology. Soto removed, hematuria subsided. DVT ppx lovenox, SCD/TEDs Discussed Condition With Patient, nurse. Failed O2 walking test. Patient needs O2 at home. Discussed with case management, nurse and the patient discharge plan. Patient improved DC home with home health and O2. patient to followup as OP with PCP and consultants. Brianna Lund MD November 12, 2016 18:10
[2016-11-13] MEDS ORDERED: FUROSEMIDE 40 MG TAB PO SCH (09:00)
[2016-11-19] MEDS ORDERED: HYDR-3583 PO (14:50)
[2016-11-29] MEDS ORDERED: HYDR-3583 PO (14:27)
[2016-12-24] MEDS ORDERED: HYDR-3583 PO (14:43)
== END 2016-11-12 16:27 | disposition home health service (06) | DRG 291 ==
LOC: NEPC 08:17 → NEDA 11:08 → N06A 13:04
PROVIDERS: ADMIT Hospitalist; ATTEND Hospitalist
DX: I50.23 Acute on chronic systolic (congestive) heart failure (principal); J18.9 Pneumonia, unspecified organism; J96.01 Acute respiratory failure with hypoxia; T83.83XA Hemorrhage due to genitourinary prosthetic devices, implants and grafts, initial encounter; R31.0 Gross hematuria; I25.10 Atherosclerotic heart disease of native coronary artery without angina pectoris; Z95.5 Presence of coronary angioplasty implant and graft; I25.2 Old myocardial infarction; E78.5 Hyperlipidemia, unspecified; E03.9 Hypothyroidism, unspecified; I10 Essential (primary) hypertension; E11.9 Type 2 diabetes mellitus without complications; Z79.84 Long term (current) use of oral hypoglycemic drugs; Z98.890 Other specified postprocedural states; K59.03 Drug induced constipation; Z86.73 Personal history of transient ischemic attack (TIA), and cerebral infarction without residual deficits; Z87.891 Personal history of nicotine dependence
CPT/HCPCS: 51702; 71010; 80048; 80053; 81001; 82948; 83880; 84484; 85025; 87040; 87070; 87205; 87449; 93005; 93306; 94620; 96365; 96375; J0456; J0696; J1650; J1815; J1940; J7050; J7512

== ENCOUNTER → 2016-12-24 | Outpatient (CLI) | payer MEDICARE, OTHER ==
[~2016-12-24] MED LIST changes: +CEFT500T3 PO; +FURO1TAB62 PO; +LACTCHW3 CHEW; +MUCI600T PO; +OXYGENTANK NAS.CANULA; +POTA10CA PO; +PRED10PA PO
[2016-12-24 09:09] LABS: HEMATOCRIT 40.4 % (39.0-51.0); MEAN CELL VOLUME 96.6 FL (80.0-100.0); MEAN CORPUSCULAR HEMOGLOBIN 30.9 PG (27.0-34.0); PLATELET COUNT 210 TH/MM3 (150-450); RED BLOOD COUNT 4.18 MIL/MM3 (4.50-5.90); RED CELL DISTRIBUTION WIDTH 14.2 % (11.6-17.2); REVIEW FLAG FINAL; WHITE BLOOD COUNT 7.8 TH/MM3 (4.0-11.0)
[2016-12-24 09:37] LABS: ANION GAP 7 MEQ/L (5-15); AST (GOT) 24 U/L (15-37); BICARBONATE 30.8 MEQ/L (21.0-32.0); BLOOD UREA NITROGEN 21 MG/DL (7-18); CHLORIDE 100 MEQ/L (98-107); GLOMERULAR FILTRATION RATE 71 ML/MIN (>89); GLUCOSE,FASTING 134 MG/DL (74-99); POTASSIUM 4.1 MEQ/L (3.5-5.1); SODIUM (NA) 138 MEQ/L (136-145)
[2016-12-24 09:38] LABS: ALT (GPT) 25 U/L (12-78)
[2016-12-24 09:41] LABS: ALKALINE PHOSPHATASE 97 U/L (45-117); HDL CHOLESTEROL 31.1 MG/DL (40.0-60.0); LDL CHOLESTEROL 69 MG/DL (0-99); LDL CHOLESTEROL DIRECT 85 MG/DL (0-99); TOTAL BILIRUBIN ADULT 0.4 MG/DL (0.2-1.0)
[2016-12-24 10:38] LABS: MICRO ALBUMIN RANDOM URINE RAW 30.6 MG/L (0.0-30.0)
[2016-12-24 15:23] LABS: HEMOGLOBIN A1a 1.3 %; HEMOGLOBIN A1b 2.3 %; HEMOGLOBIN Ao 82.2 %; HEMOGLOBIN LA1C 2.1 %; HEMOGLOBIN P3 4.2 %
== END ==
LOC: PLAB 06:48
PROVIDERS: ATTEND Internal Medicine
DX: E78.5 Hyperlipidemia, unspecified (principal); E11.65 Type 2 diabetes mellitus with hyperglycemia; I10 Essential (primary) hypertension
CPT/HCPCS: 36415; 80053; 80061; 82043; 83036; 83721; 85027

== ENCOUNTER → 2017-04-15 | Day surgery (SDC) | payer MEDICARE, OTHER ==
[~2017-04-15] MED LIST changes: +BUPIVACAINE HCL PF 0.5% 30 ML VIAL ONE; +BUPIVACAINE HCL PF 0.75% 30 ML VIAL ONE; -CEFT500T3 PO; +CEFU125S PO; +MUCI30TA2 PO; -MUCI600T PO; -NIAC500T18 PO; +NIAC500T5 PO; -OXYGENTANK NAS.CANULA; -POTA10CA PO; +PROPOFOL 200 MG/20 ML AMP IV ONE; +TRIAMCINOLONE ACETONIDE 40 MG/ML VIAL I-ARTICULR ONE; +methylPREDNISolone ACETATE 40 MG/ML VIAL I-ARTICULR ONE
--- NOTE | 2017-04-16 12:52 | M6 ---
cc: Jose BETANCOURT DATE 04/15/2017 DATE OF 1940 PROCEDURE Fluoroscopically guided left L2-3, L3-4, L4-5 and L5-S1 facet joints injection. PROCEDURE NOTE History and physical was completed and signed. Consent was signed. Procedure site was marked. Medications were listed and reconciled. Pain score was recorded. Allergies were noted. Time out was taken. Fluoroscopy time was recorded where applicable. Sedation was administered or directed by Dr. Betancourt. The patient was given oxygen. The patient was monitored by a registered nurse. Total procedure time was greater than 15 minutes. IV was started, blood pressure cuff, pulse oximeter and EKG were applied. The patient was placed in the prone position on a Reinaldo table, sedated with small amounts of propofol titrated to effect. Vital signs were monitored and remained stable throughout the procedure. The lumbar area was prepped with alcohol and 10% Betadine solution and draped with sterile drapes. Fluoroscopy was used in a [place] dog view to clearly visualize the bilateral lumbar facet joints on the left side at L4-5 and L5-S1, as well as the transverse processes at L2-3 and L3-4. Separate sterile 3-1/2-inch 25-gauge spinal needles were advanced into the left L4-5 and left L5-S1 facet joints and to the cephalad most medial angle of the transverse processes as they met the pedicle at L2-3 and L3-4. Then at each location, 1 mL of Marcaine 0.75% was given which contained 10 mg of Kenalog. Following this, the patient was taken to the recovery room with stable vital signs neurologically intact. He will be evaluated immediately and with followup to determine if he has a subjective decrease in his usual pain and a corresponding objective increase in his functional capabilities. MD OLIVIA Pitts/KASEY /9:45 AM /12:43 PM
== END | disposition home or self-care (01) ==
LOC: PHSDC 08:17
PROVIDERS: ATTEND Pain Medicine Interventional Pain Medicine
DX: M54.5 Low back pain (principal)
CPT/HCPCS: 64493; 64494; 64495; 99152; J1030; J3301

== ENCOUNTER → 2017-05-20 | Outpatient (CLI) | payer MEDICARE, OTHER ==
[~2017-05-20] MED LIST changes: -BUPIVACAINE HCL PF 0.5% 30 ML VIAL ONE; -BUPIVACAINE HCL PF 0.75% 30 ML VIAL ONE; -CEFU125S PO; +HUMIBIDDM PO; -LACTCHW3 CHEW; -MUCI30TA2 PO; -OMEG1CAP53 PO; -PRED10PA PO; -PROPOFOL 200 MG/20 ML AMP IV ONE; +SPIR25TA PO; -TRIAMCINOLONE ACETONIDE 40 MG/ML VIAL I-ARTICULR ONE; -methylPREDNISolone ACETATE 40 MG/ML VIAL I-ARTICULR ONE
[2017-05-20 10:25] LABS: HEMATOCRIT 43.3 % (39.0-51.0); MEAN CELL VOLUME 97.6 FL (80.0-100.0); MEAN CORPUSCULAR HEMOGLOBIN 32.2 PG (27.0-34.0); PLATELET COUNT 234 TH/MM3 (150-450); RED BLOOD COUNT 4.43 MIL/MM3 (4.50-5.90); RED CELL DISTRIBUTION WIDTH 13.9 % (11.6-17.2); REVIEW FLAG FINAL; WHITE BLOOD COUNT 8.8 TH/MM3 (4.0-11.0)
[2017-05-20 10:38] LABS: ANION GAP 8 MEQ/L (5-15); AST (GOT) 22 U/L (15-37); BICARBONATE 29.2 MEQ/L (21.0-32.0); BLOOD UREA NITROGEN 26 MG/DL (7-18); CHLORIDE 101 MEQ/L (98-107); GLOMERULAR FILTRATION RATE 60 ML/MIN (>89); GLUCOSE,FASTING 144 MG/DL (74-99); POTASSIUM 4.2 MEQ/L (3.5-5.1); SODIUM (NA) 138 MEQ/L (136-145)
[2017-05-20 10:43] LABS: ALKALINE PHOSPHATASE 96 U/L (45-117); ALT (GPT) 33 U/L (12-78); HDL CHOLESTEROL 33.9 MG/DL (40.0-60.0); LDL CHOLESTEROL 48 MG/DL (0-99); LDL CHOLESTEROL DIRECT 79 MG/DL (0-99); TOTAL BILIRUBIN ADULT 0.2 MG/DL (0.2-1.0)
[2017-05-20 16:49] LABS: HEMOGLOBIN A1a 1.1 %; HEMOGLOBIN A1b 2.5 %; HEMOGLOBIN Ao 81.7 %; HEMOGLOBIN LA1C 2.4 %; HEMOGLOBIN P3 4.6 %
== END ==
LOC: PLAB 07:11
PROVIDERS: ATTEND Internal Medicine
DX: I25.10 Atherosclerotic heart disease of native coronary artery without angina pectoris (principal); E03.9 Hypothyroidism, unspecified; R73.09 Other abnormal glucose
CPT/HCPCS: 36415; 80053; 80061; 82043; 83036; 83721; 85027

== ENCOUNTER 2017-05-22 07:13 | Emergency (ER) | payer MEDICARE, OTHER ==
[~2017-05-22] VITALS: Ht 180.3 cm; Wt 106.0 kg
[~2017-05-22 07:13] MED LIST changes: -SPIR25TA PO
[2017-05-22 07:22] VITALS: BP 143/67; PULSE 69; RESP 18; TEMP 98; O2SAT 98
[2017-05-22 07:30] VITALS: RESP 18; O2SAT 98
[2017-05-22] MEDS ORDERED: SODIUM CHLORIDE 0.9% FLUSH 10 ML FLUSH IVF PRN (07:30)
[2017-05-22] MEDS ORDERED: SPIR25TA PO (07:32)
[2017-05-22 08:14] LABS: AUTOMATED NEUTROPHIL # 5.4 TH/MM3 (1.8-7.7); BASOPHIL # 0.1 TH/MM3 (0-0.2); BASOPHIL % 0.7 % (0.0-2.0); EOSINOPHIL # 0.2 TH/MM3 (0-0.4); EOSINOPHIL % 1.8 % (0.0-4.0); HEMATOCRIT 43.6 % (39.0-51.0); HEMO FLAGS DIFF FINAL; LYMPH % 25.4 % (9.0-44.0); LYMPHOCYTE # 2.2 TH/MM3 (1.0-4.8); MEAN CELL VOLUME 97.7 FL (80.0-100.0); MEAN CORPUSCULAR HEMOGLOBIN 33.1 PG (27.0-34.0); MEAN CORPUSCULAR HGB CONC 33.8 % (32.0-36.0); MONO % 8.7 % (0.0-8.0); NEUT % 63.4 % (16.0-70.0); PLATELET COUNT 238 TH/MM3 (150-450); RED BLOOD COUNT 4.46 MIL/MM3 (4.50-5.90); RED CELL DISTRIBUTION WIDTH 14.1 % (11.6-17.2); WHITE BLOOD COUNT 8.6 TH/MM3 (4.0-11.0)
[2017-05-22 08:28] LABS: PROTHROMBIN TIME - PATIENT 11.4 SEC (9.8-11.6)
--- NOTE | 2017-05-22 08:28 | PD ---
HPI Chief Complaint: Respiratory Symptoms Time Seen by Provider: 07:31 Travel History International Travel<30 days: No Contact w/Intl Traveler<30days: No Traveled to known affect area: No History of Present Illness HPI Patient is a 68-year-old male presents emergency Department with shortness of breath and a vague chest discomfort. Patient states been going on for the past 24-48 hours. Denies any fever cough congestion. Denies any increased swelling in his legs. States does have a history of CHF as well as stents in his heart. Has not had a recent stress test or cardiac catheterization. Endorses some mild shortness of breath and orthopnea. Symptoms are moderate, worsening over the past few days, context as above. PFSH Past Medical History Hx Anticoagulant Therapy: Yes (ASA) Arthritis: Yes Blood Disorders: No Cancer: No Cardiac Catheterization: Yes Cardiovascular Problems: Yes High Cholesterol: Yes Chest Pain: Yes Congestive Heart Failure: No Cerebrovascular Accident: Yes (TIA NOVEMBER 2013) Coronary Artery Disease: Yes Diabetes: Yes Patient Takes Glucophage: Yes Diminished Hearing: No Endocrine: Yes Gastrointestinal Disorders: No Genitourinary: Yes (enlarged prostate) Hepatitis: No Hiatal Hernia: No Heparin Induced Thrombocytopen: No Hypertension: Yes Immune Disorder: No Implanted Vascular Access Dvce: No Kidney Stones: Yes Musculoskeletal: Yes (arthritis and lower back pain) Neurologic: Yes (TIA) Psychiatric: No Reproductive: No Respiratory: No Immunizations Current: Yes Myocardial Infarction: Yes (2000) Thyroid Disease: Yes Tetanus Vaccination: < 5 Years Influenza Vaccination: Yes PNEUMOCCOCAL Vaccine (Year): 1 Past Surgical History Abdominal Surgery: No AICD: No Body Medical Devices: cardiac stents x 3 Cardiac Surgery: Yes (PLACEMENT OF STENT x 3) Coronary Stent: Yes (4 STENTS 2000 & 2003) Ear Surgery: No Endocrine Surgery: No Eye Surgery: Yes (REMOVAL OF STEEL RT. EYE) Genitourinary Surgery: No Gynecologic Surgery: No Joint Replacement: Yes (RT KNEE REPLACEMENT) Neurologic Surgery: No Oral Surgery: Yes (for dentures) Pacemaker: No Thoracic Surgery: No Other Surgery: Yes Social History Alcohol Use: No (QUIT 1979) Tobacco Use: No (QUIT 1979) Substance Use: No Allergies-Medications (Allergen,Severity, Reaction): Coded Allergies: morphine (Verified Allergy, Severe, RASH, 05/22/17) cyclobenzaprine (Verified Adverse Reaction, Mild, CONFUSION, 05/22/17) tramadol (Verified Adverse Reaction, Mild, FATIGUE, NERVOUSNESS, CONFUSION , 05/22/17) Reported Meds & Prescriptions Reported Meds & Active Scripts Active Hydrocodone-Acetaminophen 10-325 mg Tab 1 Tab PO Q8HR PRN Lasix (Furosemide) 20 Mg Tab 20 Mg PO DAILY Neurontin (Gabapentin) 300 Mg Cap 600 Mg PO TID Reported Spironolactone 25 Mg Tab 25 Mg PO BIDPC Mucinex DM (Dextromethorphan-Guaifenesin) 30-600 Mg Tab 1 Tab PO BID PRN Niacin 500 Mg Tab 500 Mg PO BID Metoprolol Tartrate 50 Mg Tab 50 Mg PO DAILY Zocor (Simvastatin) 40 Mg Tab 10 Mg PO HS Synthroid (Levothyroxine Sodium) 75 Mcg Tab 75 Mcg PO DAILY Ramipril 5 Mg Cap 5 Mg PO BID Plavix (Clopidogrel Bisulfate) 75 Mg Tab 75 Mg PO DAILY Metformin (Metformin HCl) 500 Mg Tab 500 Mg PO BIDPC With meals Aspir-Low (Aspirin) 81 Mg Tabdr 81 Mg PO Doyle 3 1000 mg ([place]-3 Fatty Acids) 1 Cap Cap 2 Gm PO BID Review of Systems Except as stated in HPI: all other systems reviewed are Neg Physical Exam Narrative GENERAL: Well developed well-nourished, overweight no obvious distress. SKIN: Focused skin assessment warm/dry. HEAD: Atraumatic. Normocephalic. EYES: Pupils equal and round. No scleral icterus. No injection or drainage. ENT: No nasal bleeding or discharge. Mucous membranes pink and moist. NECK: Trachea midline. No JVD. CARDIOVASCULAR: Regular rate and rhythm. No murmur appreciated. RESPIRATORY: No accessory muscle use. Basler faint rales.. Breath sounds equal bilaterally. GASTROINTESTINAL: Abdomen soft, non-tender, nondistended. Hepatic and splenic margins not palpable. MUSCULOSKELETAL: No obvious deformities. No clubbing. No cyanosis. 22+ pitting edema from tibial prominence distally. NEUROLOGICAL: Awake and alert. No obvious cranial nerve deficits. Motor grossly within normal limits. Normal speech. PSYCHIATRIC: Appropriate mood and affect; insight and judgment normal. Data Data Last Documented VS Vital Signs Date Time Temp Pulse Resp B/P (MAP) Pulse Ox O2 Delivery O2 Flow Rate FiO2 05/22/17 10:13 05/22/17 09:00 97.8 62 18 98 Room Air Orders Orders Electrocardiogram (05/22/17 07:29) Ckmb (Isoenzyme) Profile (05/22/17 07:29) Complete Blood Count With Diff (05/22/17 07:29) Comprehensive Metabolic Panel (05/22/17 07:29) Magnesium (Mg) (05/22/17 07:29) Prothrombin Time / Inr (Pt) (05/22/17 07:29) Act Partial Throm Time (Ptt) (05/22/17 07:29) Troponin I (05/22/17:29) Chest, Single Ap (05/22/17 07:29) Ecg Monitoring (05/22/17 07:29) Iv Access Insert/Monitor (05/22/17:29) Oximetry (05/22/17:) Oxygen Administration (05/22/17:29) Sodium Chloride 0.9% Flush (Ns Flush) (05/22/17 07:30) Furosemide (Lasix) (05/22/17 10:00) Ed Discharge Order (05/22/17 09:53) Labs Laboratory Tests Test 05/22/17 07:30 White Blood Count 8.6 TH/MM3 Red Blood Count 4.46 MIL/MM3 Hemoglobin 14.7 GM/DL Hematocrit 43.6 % Mean Corpuscular Volume 97.7 FL Mean Corpuscular Hemoglobin 33.1 PG Mean Corpuscular Hemoglobin Concent 33.8 % Red Cell Distribution Width 14.1 % Platelet Count 238 TH/MM3 Mean Platelet Volume 9.7 FL Neutrophils (%) (Auto) 63.4 % Lymphocytes (%) (Auto) 25.4 % Monocytes (%) (Auto) 8.7 % Eosinophils (%) (Auto) 1.8 % Basophils (%) (Auto) 0.7 % Neutrophils # (Auto) 5.4 TH/MM3 Lymphocytes # (Auto) 2.2 TH/MM3 Monocytes # (Auto) 0.7 TH/MM3 Eosinophils # (Auto) 0.2 TH/MM3 Basophils # (Auto) 0.1 TH/MM3 CBC Comment DIFF FINAL Differential Comment Prothrombin Time 11.4 SEC Prothromb Time International Ratio 1.0 RATIO Activated Partial Thromboplast Time 26.0 SEC Blood Urea Nitrogen 19 MG/DL Creatinine 1.06 MG/DL Random Glucose 167 MG/DL Total Protein 7.8 GM/DL Albumin 3.7 GM/DL Calcium Level 9.2 MG/DL Magnesium Level 1.7 MG/DL Alkaline Phosphatase 92 U/L Aspartate Amino Transf (AST/SGOT) 28 U/L Alanine Aminotransferase (ALT/SGPT) 35 U/L Total Bilirubin 0.5 MG/DL Sodium Level 136 MEQ/L Potassium Level 4.9 MEQ/L Chloride Level 101 MEQ/L Carbon Dioxide Level 27.0 MEQ/L Anion Gap 8 MEQ/L Estimat Glomerular Filtration Rate 68 ML/MIN Total Creatine Kinase 80 U/L Troponin I LESS THAN 0.02 NG/ML MDM Medical Decision Making Medical Screen Exam Complete: Yes Emergency Medical Condition: Yes Differential Diagnosis CHF exacerbation, ACS, AMI. Narrative Course Patient roomed emergency department, signs symptoms consistent with acute CHF exacerbation. He appears fairly well but has not had a recent stress and has a very vague chest discomfort. States no obvious chest pain. EKG troponin negative. Last 24 hours Impressions Chest X-Ray 05/22/17 0729 Signed Impressions: Service Date/Time: Monday, May 22, 2017 08:18 - CONCLUSION: Basilar interstitial lung disease. Upper lobes are clear. Patel Hdez MD Recommended the patient remained in the hospital for evaluation by cardiology and he is adamant that he is feeling better and wants to go home. Discussed with him risk of signing out AMA including sudden cardiovascular collapse, worsening CHF as well as permanent or partial disability. He verbalized understanding and still wished to go home and follow-up with his senior analyst programmer. At this point he understands the consequences of signing out AMA and is able to do so. Chest with him he is welcome to return at any time. At this time continue taking his Lasix as prescribed no change in medications. Diagnosis Primary Impression: CHF exacerbation Additional Impression: Chest pain Disposition: AGAINST MEDICAL ADVICE Condition: Stable Patrick Lemons MD May 22, 2017 08:28
[2017-05-22 08:32] LABS: ALT (GPT) 35 U/L (12-78); ANION GAP 8 MEQ/L (5-15); AST (GOT) 28 U/L (15-37); BLOOD UREA NITROGEN 19 MG/DL (7-18); CHLORIDE 101 MEQ/L (98-107); GLOMERULAR FILTRATION RATE 68 ML/MIN (>89); MAGNESIUM 1.7 MG/DL (1.5-2.5); SODIUM (NA) 136 MEQ/L (136-145)
[2017-05-22 08:33] LABS: POTASSIUM 4.9 MEQ/L (3.5-5.1)
[2017-05-22 08:39] LABS: ALKALINE PHOSPHATASE 92 U/L (45-117); TOTAL BILIRUBIN ADULT 0.5 MG/DL (0.2-1.0)
[2017-05-22 08:40] LABS: CREATINE KINASE 80 U/L (39-308)
[2017-05-22 09:00] VITALS: BP 138/71; PULSE 62; RESP 18; TEMP 97.8; O2SAT 98
--- NOTE | 2017-05-22 09:04 | RADRPT ---
EXAM DATE/TIME: 05/22/2017 08:18 [facility] COMPARISON: CHEST SINGLE AP, November 10, 2016, 8:54. INDICATIONS : Short of breath, congestion. MEDICAL HISTORY : Myocardial infarction. Congestive heart failure. SURGICAL HISTORY : Coronary artery stent. ENCOUNTER: Initial ACUITY: 2 days PAIN SCORE: 0/10 LOCATION: Bilateral chest FINDINGS: A single view of the chest demonstrates the lungs to be symmetrically aerated without evidence of mas s, infiltrate or effusion except for mild basilar interstitial lung disease. Left hemidiaphragm is ma rkedly elevated. The cardiomediastinal contours are unremarkable. Osseous structures are intact. CONCLUSION: Basilar interstitial lung disease. Upper lobes are clear. Patel Hdez MD on May 22, 2017 at 9:02 Board Certified Radiologist. This report was verified electronically.
[2017-05-22] MEDS ORDERED: FUROSEMIDE 40 MG TAB PO ONE (10:00)
--- NOTE | 2017-05-24 08:46 | EKG ---
Date Performed: 05/22/2017 Time Performed: 07:26:27 PTAGE: 76 years EKG: Sinus rhythm BORDERLINE LEFT AXIS DEVIATION BORDERLINE ECG PREVIOUS TRACING : 11/10/2016 08.29 DOCTOR: Patel Rodriguez Interpretating Date/Time 05/24/2017 08:44:56
== END 2017-05-22 10:17 | disposition left against medical advice (07) ==
LOC: NEPE 07:13
DX: I50.9 Heart failure, unspecified (principal); I11.0 Hypertensive heart disease with heart failure; R07.9 Chest pain, unspecified; J84.9 Interstitial pulmonary disease, unspecified; E78.00 Pure hypercholesterolemia, unspecified; E11.9 Type 2 diabetes mellitus without complications; I25.10 Atherosclerotic heart disease of native coronary artery without angina pectoris; I25.2 Old myocardial infarction; Z95.5 Presence of coronary angioplasty implant and graft; Z86.73 Personal history of transient ischemic attack (TIA), and cerebral infarction without residual deficits; Z79.82 Long term (current) use of aspirin; Z79.84 Long term (current) use of oral hypoglycemic drugs
CPT/HCPCS: 71010; 80053; 82550; 83735; 84484; 85025; 85610; 85730; 93005; 99285